=== PATIENT | male | born 1960 | race Caucasian/White ===

== ENCOUNTER → 2016-09-26 | Outpatient (CLI) | payer BC ==
[~2016-09-26] MED LIST: ASPI81TA28 PO; B-COTAB18 PO; CHOL2000 PO; COEN1CAP17 PO; FERR28TA PO; FEXO1TAB49 PO; GLUC1CAP35 PO; IRBE-37 PO; PRAV40TA2 PO; PRLSR20 PO; SERT50TA PO
== END | disposition home or self-care (01) ==
LOC: C.FOODA 09:15
PROVIDERS: ATTEND Internal Medicine Gastroenterology
DX: K90.0 Celiac disease (principal)

== ENCOUNTER 2021-10-23 05:10 | Observation (INO) ==
--- NOTE | 2021-09-28 08:30 | History & Physical Report ---
Date of Service September 28, 2021 date of surgery: 10/23/21 Procedure: Right Total Knee Arthroplasty Surgeon: Rasheed Martinez Assessment & Plan (1) Arthritis of right knee: Plan: Risks and benefits of procedure discussed in detail today, patient would like to proceed with a Right total knee replacement at [facility] as scheduled. will obtain medical clearance prior to surgery as well as obtain PATs at [facility]. Will place on ASA 81mg po bid x 1 month post op, f/u 2 weeks post op for routine post-operative care and x-ray, sooner if having any problems. will make arrangements for HHPT at the time of discharge, possible OPJ program. At this point in time, has failed conservative measures and would like to proceed with surgical intervention. The risks and benefits have been discussed including, but not limited to, risk of infection, nerve injury, stiffness, loss of motion, failure to improve, etc. Reasonable outcomes and options of treatment were discussed. An explanation of appropriate alternatives to the procedure that may be advantageous were discussed and their risks and benefits, as well as the risks and benefits of not proceeding with treatment. I offered to answer any additional inquiries concerning the treatment involved. All the patient's questions were answered. The patient is agreeable, understanding of the treatment plan and alternatives, and wishes to proceed with the treatment plan. History of Present Illness Chief Complaint: Right knee pain Primary Care Provider: Sue Espinal MD Benigno is a 61 year old male who complains of right knee pain, presents for pre- op evaluation prior to a right total knee replacement by Dr Martinez at [facility]. He complains of pain, decreased range of motion, and stiffness in his right knee. Currently the patient states that the symptoms are moderate-severe and rated as 6/10. The pain is described as aching, sharp and throbbing. He has undergone previous visco injection as well as cortisone without much relief. he has had prior right knee scope as well by Dr Mendoza, in April 2019 had partial medial and lateral meniscectomies. he also uses Celebrex for pain. Allergies Allergy/AdvReac Type Severity Reaction Status Date / Time cefuroxime Allergy Intermediate DIARRHEA Verified 05/28/21 14:19 gluten Allergy Unknown CELIAC Verified 05/28/21 14:19 DISEASE Home Medications Medication Instructions Recorded Confirmed Type aspirin 81 mg tablet,delayed 81 mg PO QAM 05/02/21 05/28/21 History release celecoxib 200 mg capsule 200 mg PO QAM 05/02/21 05/28/21 History cholecalciferol (vitamin D3) 50 50 mcg PO QAM 05/02/21 05/28/21 History mcg (2,000 unit) tablet (Vitamin D3) fexofenadine 180 mg tablet 180 mg PO QAM 05/02/21 05/28/21 History glucosamine 1 tab PO QAM 05/02/21 05/28/21 History HCl-methylsulfonylmethane 750 mg-750 mg tablet irbesartan 150 mg tablet 150 mg PO QAM 05/02/21 05/28/21 History cvvxtvqm-zcy-htgpd acid 0.4 1 tab PO QAM 05/02/21 05/28/21 History mg-lycopene 300 mcg-lutein 250 mcg tablet (Centrum Silver) omeprazole 20 mg capsule,delayed 20 mg PO QAM 05/02/21 05/28/21 History release oxycodone 5 mg tablet (Roxicodone) 5 mg PO Q6H PRN #12 tab 05/02/21 05/28/21 Rx sertraline 50 mg tablet 50 mg PO QAM 05/02/21 05/28/21 History metformin 500 mg tablet 500 mg PO QAM 05/28/21 05/28/21 History Past Med/Surg History Medical History Celiac disease Degenerative disc disease Depression Diabetes mellitus, type 2 pt reports diagnosis around 05/2021; followed by PCP GERD (gastroesophageal reflux disease) controlled, stable per pt Hyperlipidemia no meds at present can't tolerate statins Hypertension controlled, stable per pt 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, occasional vasovagal syncope in related settings Osteoarthritis Sleep apnea cpap-compliant Spinal stenosis Surgical History History of arthroscopy bilat knees History of colonoscopy History of esophagogastroduodenoscopy (EGD) History of spinal surgery L3-5 History of tooth extraction Hx of hernia repair as Hx of surgical procedure vocal cords > laser procedure for Leukoplakia Social History Smoking Status: Former smoker Second Hand Exposure: No; Hx Alcohol Use: Yes Alcohol type: wine Hx Substance Use: No Preferred Language: [place] Communication Ability: Effective [employer] Required: No Beliefs That Will Affect Care: None Current Living Situation: Significant Other Feels Safe at Home: Yes Assistive Devices: CPAP and Glasses Review of Systems Review of Systems: All systems reviewed & are unremarkable except as noted in HPI & below Constitutional: no fever, no chills and no sweats Respiratory: no cough and no dyspnea Cardiovascular: no chest pain, no dyspnea and no orthopnea Gastrointestinal: no abdominal pain, no nausea and no vomiting Musculoskeletal: as per Subjective / HPI Physical Exam Physical Exam: BP 134/90 Constitutional: WD/WN, vitals as above no acute distress Respiratory: normal respiratory effort, lungs clear to auscultation no respiratory distress, no labored breathing and does not use accessory muscles Cardiovascular: RRR, no murmur, no edema Gastrointestinal (Abdomen): normal bowel sounds, soft, nontender, no hepatosplenomegaly Musculoskeletal: Knee: + knee abnormal to inspection (RIGHT KNEE: ), + effusion (+1 effusion), + surgical incision (well healed portals), + limited ROM of knee (ROM 0/3/110), + knee ROM with crepitation, + joint line tenderness (medial joint line) and + Arben's sign positive; no deformity, no skin erythema, no ecchymosis, no valgus laxity, no varus laxity, anterior drawer test negative, Ernie's sign negative and pivot shift test negative Results & Data Results & Data ([facility]) Diagnostic Findings Right Knee X-ray: Right knee series showing degenerative changes to the right knee, narrowing of the medial compartment and patello-femoral joint with patellar spurring noted, findings showing joint space narrowing of the medial compartment and patello- femoral joint, osteophyte formation and subchondral sclerosis noted. overall varus alignment. no acute bony pathology noted.
--- NOTE | 2021-10-18 15:30 | Anesthesiology Consultation ---
Date of Service October 18, 2021 Assessment & Plan (1) Encounter for pre-operative examination: Chart Review Chart Review: Acceptable Risk for Surgery (pending anesthesia evaluation DOS ) and Patient NOT seen in Pre Admission Testing - Discussed with Dr. You- due to comorbidities- patient is NOT a Same Day Joint Candidate- surgeon's office was informed. - Due to moderate aortic stenosis- pt may need to have procedure done under [place]. Will leave to anesthesiologist discretion DOS - Check BSG AM DOS Per nursing assessment 10/18/2021, patient denies any recent travel. No known COVID infection in the past 90 days. Patient is fully vaccinated for COVID. No known Covid positive exposures or Covid related symptoms. Preop Covid testing scheduled 10/19/21= will await results Per PCP clearance letter 08/20/2021 = patient has been deemed to be medically stable at this time based on history, physical exam, laboratory, and imaging studies. His blood sugar is well controlled as well as his cyclic gastrointestinal disease. I am unaware of any contraindications to orthopedic surgery and believe him to be a good surgical candidate. If patient would require inpatient stay, please allow him to use his home CPAP machine and he should remain on a gluten-free, diabetic diet. Patient should not receive the antibiotic Ceftin as it causes diarrhea. Patient seen by PCP 06/12/2021 = patient seen for preop clearance. Surgery currently being postponed due to A1c being 9. Patient also found to have abnormal CXR. Also has history of heart murmur. Diabetes/hyperglycemiacontinue metformin. We will make change to GLP-1. Start Rybeisus- if tolerating increase to 6mg after two weeks. Follow up in one month. Pt with known history of mild to moderate aortic stenosis since 2014. ECHO 1 year ago documenting stability. No new clinical symptoms or findings so does not need ECHO at this time. Has been evaluated by athletics teacher in the past few yearsknown atherosclerosis plaque but not obstructive disease. Abnormal chest x-ray- needs CT scan. (Had subsequent CT scan done) Per PCP message 06/13/21= Pt stating that he has hx of murmur that radiates to neck. Has been told he has blockage to carotids in the past but unable to tolerate medication. Per PCP response "No prior history of carotid disease that I was ever aware of is his physician for the past 10 yearsreviewed all notes from cardiology [id number] and no mention of this. Has known heart murmur from aortic valve calcification that does radiate to neck as often seen with this condition. He has heavy calcification in the garcia of his coronary and iliac arteries but no obstruction of blood flow in the past testing. Okay to send them a copy of this message and of cardiology note April 2018 (Discussed with Dr. You- pt seen in PAT on 06/11/21 - no carotid bruits noted at that time- pt can proceed as scheduled) History Surgery Operation Date: 10/23/21 07:15 Proposed Procedures p Right Total Knee Arthroplasty - Rasheed Martinez DO Height/Weight Height: 6 ft Weight: 93.44 kg Allergies Allergy/AdvReac Type Severity Reaction Status Date / Time cefuroxime Allergy Intermediate DIARRHEA Verified 10/18/21 13:41 gluten Allergy Unknown CELIAC Verified 10/18/21 13:41 DISEASE Gbmnxzw-XIF-UuE Reductase AdvReac Muscle Pain Verified 10/18/21 13:41 Inhibitor Medications Home Medications Medication Instructions Recorded Confirmed Last Taken aspirin 81 mg tablet,delayed 81 mg PO QAM 05/02/21 10/18/21 05/02/21 release celecoxib 200 mg capsule 200 mg PO QAM 05/02/21 10/18/21 05/02/21 cholecalciferol (vitamin D3) 50 50 mcg PO QAM 05/02/21 10/18/21 05/02/21 mcg (2,000 unit) tablet (Vitamin D3) fexofenadine 180 mg tablet 180 mg PO QAM 05/02/21 10/18/21 05/02/21 glucosamine 1 tab PO QAM 05/02/21 10/18/21 05/02/21 HCl-methylsulfonylmethane 750 mg-750 mg tablet irbesartan 150 mg tablet 150 mg PO QAM 05/02/21 10/18/21 05/02/21 nydhzvvo-eyt-byvrj acid 0.4 1 tab PO QAM 05/02/21 10/18/21 05/02/21 mg-lycopene 300 mcg-lutein 250 mcg tablet (Centrum Silver) omeprazole 20 mg capsule,delayed 20 mg PO QAM 05/02/21 10/18/21 05/02/21 release sertraline 50 mg tablet 50 mg PO QAM 05/02/21 10/18/21 05/02/21 semaglutide 7 mg tablet (Rybelsus) 7 mg PO QAM 10/18/21 10/18/21 Unknown Past Medical History Medical History (Updated 10/18/21 @ 15:39 by Margarita Aparicio PA-C) Aortic stenosis At least moderate per 05/2020 ECHO Celiac disease Coronary artery calcification Noted on CT scan- PCP aware- last seen by cardio 2017 (also with severe calcification involving the distal aorta into the common iliac arteries) Degenerative disc disease Depression Diabetes mellitus, type 2 Hgb A1C improved from 9.0 in 06/2021 to 5.5 on 10/16/21 GERD (gastroesophageal reflux disease) controlled, stable per pt Hyperlipidemia no meds at present can't tolerate statins Hypertension controlled, stable per pt 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, occasional vasovagal syncope in related settings Osteoarthritis Sleep apnea cpap-compliant Spinal stenosis Past Surgical History Surgical History History of arthroscopy bilat knees History of colonoscopy History of esophagogastroduodenoscopy (EGD) History of spinal surgery L3-5 History of tooth extraction Hx of hernia repair as infant Hx of surgical procedure vocal cords > laser procedure for Leukoplakia Social History Smoking Status: Former smoker Do You Dip or Chew Tobacco: No Smoking End Date: 5 years ago Hx Alcohol Use: Yes Alcohol type: wine alcohol intake frequency: a few times a month Hx Substance Use: No substance use type: does not use Lab Results Anesthesia Preop Results Results Anesthesia Widget: WBC 5.16 K/uL (4.8-10.8) 10/16/21 Hgb 15.1 g/dL (14.0-18.0) 10/16/21 Hct 43.0 % (42-52) 10/16/21 Plt 213 K/uL (130-400) 10/16/21 Na 139 mmol/L (136-145) 10/16/21 K 4.3 mmol/L (3.5-5.1) 10/16/21 Cl 103 mmol/L (98-107) 10/16/21 CO2 28 mmol/L (21-32) 10/16/21 BUN 13 mg/dl (6-23) 10/16/21 Creat 0.62 mg/dl (0.6-1.4) 10/16/21 Glucose Level 99 mg/dl (70-99(Fasting)) 10/16/21 PT 11.8 Seconds (9.0-12.0) 10/16/21 PTT 27.3 Seconds (21.0-31.0) 10/16/21 INR 1.1 (0.9-1.1) 10/16/21 HA1c 5.5 % (4.5-5.6) 10/16/21 Urine Color Yellow 10/16/21 Urine Appearance Clear (Clear) 10/16/21 Urine pH 6.5 (4.5-7.5) 10/16/21 Urine Specific [place] 1.014 (1.000-1.030) 10/16/21 Urine Protein Trace (Negative) H 10/16/21 Urine Glucose (UA) Negative (Negative) 10/16/21 Urine Ketones Negative (Negative) 10/16/21 Urine Blood Negative (Negative) 10/16/21 Urine Nitrite Negative (Negative) 10/16/21 Urine Bilirubin Negative (Negative) 10/16/21 Urine Urobilinogen Negative (Negative) 10/16/21 Urine Leukocyte Esterase Negative (Negative) 10/16/21 Urine WBC (Auto) 1-5 /hpf (0-5) 10/16/21 Urine RBC (Auto) 0-4 /hpf (0-4) 10/16/21 Urine Hyaline Casts (Auto) 0 /lpf (0-5) 10/16/21 Urine Epithelial Cells (Auto) 0-5 /lpf (0-5) 10/16/21 Urine Bacteria (Auto) Negative (Negative) 10/16/21 Testing Electrocardiogram Date: 06/11/21 Normal sinus rhythm, rate 75 bpm. Chest X-Ray Date: 06/11/21 FINDINGS: Question of a 7 mm nodule within the left upper lobe. The right lung is clear. The heart is normal in size. No pleural effusions. No pneumothorax. IMPRESSION: 1. No acute process within the chest. 2. Questionable 7 mm nodule within left upper lobe. This is likely due to the ov erlapping ribs. However, follow-up dedicated chest CT is recommended for further evaluation. This finding was called/faxed to the referring physician following dictation. (Had subsequent chest CT 06/19/2021) Echocardiogram Date: 05/17/20 EF: 55% LV Function: normal Other Findings: + diastolic dysfunction (Grade I ) Left atrium moderately dilated. Trace mitral regurgitation directed centrally. Mitral valve is mildly thickened. Mild mitral annular calcification Aortic valve is poorly visualized and calcified. Valve area 1.75 cm; AV mean gradient 21 mmHg. Moderate aortic stenosis. ("There is at least moderate aortic stenosis based on gradient evaluation. Consider ONDINA based on clinical suspicion). Mild TR. Mild pulmonary hypertension. Ascending aorta is mildly dilated. (ECHO done within the past two years - can proceed with surgery- discussed with Dr. You) Stress Test Date: 04/03/16 Type: DSE Negative dobutamine stress EKG and echocardiogram for ischemia. MPHR 85% EF 65% Left ventricular cavity size and systolic function are normal with no regional wall motion abnormalities present Other Testing Chest CT 06/19/2021 = mild pulmonary emphysema without acute intrathoracic a bnormality. No pulmonary nodules identified. Question opacity of the left upper lung described on recent chest x-ray was likely secondary to summation density. Extensive coronary artery calcifications. Hepatomegaly with hepatic steatosis.
[2021-10-23] MEDS ORDERED: FAMOTIDINE 20 MG TAB PO SCH (06:00)
[2021-10-23] MEDS ORDERED: LR 15ML/HR IV SCH (06:00)
[2021-10-23] MEDS ORDERED: dexAMETHasone 4 MG TAB PO SCH (06:00)
[2021-10-23] MEDS ORDERED: ACETAMINOPHEN 500 MG TAB PO SCH (06:00)
[2021-10-23] MEDS ORDERED: TRANEXAMIC ACID 1,000 MG **IV Pre-op IV SCH (06:00)
[2021-10-23] MEDS ORDERED: GABAPENTIN 600 MG DOSE PO SCH (06:00)
[2021-10-23] MEDS ORDERED: METOCLOPRAMIDE HCL 10 MG TABLET PO SCH (06:00)
[2021-10-23] MEDS ORDERED: TRANEXAMIC ACID 1,000 MG **IV Intra-op IV SCH (06:00)
[2021-10-23] MEDS ORDERED: CeleBREX 200 MG CAP PO SCH (06:00)
[2021-10-23] MEDS ORDERED: ROPIVACAINE 0.5% HCL/PF 150 MG, BUPIVACAINE 0.75% MPF 20 ML, EPINEPHrine 30MG/30ML (OR ... INSTIL SCH (06:00)
[2021-10-23] MEDS ORDERED: ceFAZolin 2000MG 2,000 MG/15 ML SYR IV SCH (06:00)
[2021-10-23] MEDS ORDERED: ROPIVACAINE 0.5% 5 MG/ML 30 ML VIAL ONE (06:17)
[2021-10-23] MEDS ORDERED: BUPIVACAINE 0.5 % 5 MG/1 ML PF 10ML VIAL ONE (06:17)
[2021-10-23] MEDS ORDERED: MIDAZOLAM HCL 1 MG/ML 2ML VIAL ONE (06:40)
[2021-10-23] MEDS ORDERED: PROPOFOL IV EMULSION 10 MG/ML 20 ML VIAL IV ONE ×2 (06:40→08:32)
[2021-10-23] MEDS ORDERED: LIDOCAINE 2% 2 ML VIAL/AMP(20MG/ML) INFIL ONE (06:40)
[2021-10-23] MEDS ORDERED: fentaNYL citrate 100 MCG/2 ML VIAL ONE (06:40)
--- NOTE | 2021-10-23 07:12 | History & Physical Bridge Note ---
Date of Service October 23, 2021 History & Physical Bridge Note I have examined the patient, reviewed the History & Physical and in the interval since the performance of the History & Physical I have noted the following changes of clinical significance: no changes noted
[2021-10-23] MEDS ORDERED: ORTHO JOINT ANESTHETIC ONE (07:17)
[2021-10-23] MEDS ORDERED: EPINEPHrine INJ 1 MG/ML AMP ONE (07:18)
[2021-10-23] MEDS ORDERED: BUPIVACAINE 0.25% 30 ML VIAL ONE (07:18)
[2021-10-23] MEDS ORDERED: DEXAMETHASONE SOD INJ 4 MG/ML VIAL ONE (07:18)
[2021-10-23] MEDS ORDERED: ATROPINE SULFATE 0.1 MG/ML 10ML SYR IV PRN (08:27)
[2021-10-23] MEDS ORDERED: ePHEDrine sulfate 50 MG/ML AMP IV PRN (08:27)
[2021-10-23] MEDS ORDERED: fentaNYL citrate 100 MCG/2 ML VIAL IV PRN (08:27)
[2021-10-23] MEDS ORDERED: ONDANSETRON INJ 2 MG/ML 2 ML VIAL IV PRN ×2 (08:27→10:44)
[2021-10-23] MEDS ORDERED: ONDANSETRON INJ 2 MG/ML 2 ML VIAL ONE (08:32)
--- NOTE | 2021-10-23 08:50 | Operative Report ---
Post Operative Report Pre & Post Diagnosis Operation Date: 10/23/21 07:15 Pre-Op Diagnosis: Right Knee Osteoarthritis Post-Op Diagnosis: Right Knee Osteoarthritis I identified the patient and participated in the time-out.: Yes Procedure Operation Date: 10/23/21 07:15 Actual Procedures p Right Total Knee Arthroplasty(Right) utilizing [employer] persona patient matched size femur 10 regular tibia G poly-10 mm medial constrained patella 34 oval- Rasheed Martinez DO Surgeon Rasheed Martinez DO Crown Wheel Assembler CHRIS Cutler Estimated Blood Loss 5 Findings Consistent with Post-Op Diagnosis Patient presents with severe end-stage tricompartmental degenerative joint disease patient has subchondral sclerosis marginal osteophytes 5 degree flexion contracture varus alignment eburnated uzhs-sd-vkee with marginal osteophytes and a moderate to large effusion Specimens Bone and cartilage Drains Medium bore Hemovac Anesthesia Type MAC Spinal Regional Complications none Disposition Accompanied Patient To Recovery: No Disposition: Recovery Room Indications Patient presents with severe end-stage tricompartmental degenerative joint disease right knee failed attempted conservative management daily physical therapy anti-inflammatories relative rest activity modification corticosteroid injection viscosupplementation the above intraoperative findings were noted. Description of Procedure After proper prepping and draping of the Right lower extremity anterior midline incision was made over the region of the extensor extensor mechanism after meticulous hemostasis was obtained and maintained in subcutaneous tissues a medial parapatellar incision was made The patella was subluxed lateralward the medial lateral gutter were cleaned from any hypertrophic synovitis and scar tissue of the distal femoral block was placed and the distal femoral osteotomy cut was made subsequently the chamfers anterior and posterior osteotomy cuts were made utilizing the 4-in-1 block the tibia was subsequently subluxed anteriorward medial and ateral meniscal remnants were excised in their entirety remnants of the anterior and posterior cruciate ligaments were excised in their entirety excellent exposure of the proximal tibia was obtained the tibial osteotomy guide was placed on the proximal tibial osteotomy cut was made once again the knee was irrigated with copious amounts of sterile saline solution the patella was subsequently everted lateralward thickened scar tissue around the patella was removed the patella was subsequently cut utilizing a freehand technique and was drilled prepared for final preparation and placement of patella socially flexion-extension gaps were checked and the equal and symmetric trials were placed to the appropriate femoral and tibial trials with poly-spacer being placed for equal flexion and extension gaps and full range of motion including extension to 0 and flexion to 140 the trial components after having been taken to recovery range of motion was subsequently removed meticulous hemostasis was obtained and maintained subsequently a knee block injection of letty int cocktail including ropivacaine 0.5% 150 mg. Bupivacaine 0.5% epinephrine 1- 200,030 mL's toradol 30 mg dexamethasone 4 mg ketamine 10 mg clonidine 100 micrograms normal saline solution 30 mg was infiltrated into the soft tissues of the posterior knee medial lateral gutters and periosteal synovium special attention was paid to protect neurovascular structures at all times subsequently trial components having been removed the knee was irrigated with sterile saline solution. debris was removed the proximal tibia was subsequently prepared and was made ready for the placement of the tibial component tibial component was also cemented and tamped into position the femoral component was subsequently placed and cemented in the position the patellar component was subsequently cemented in position because hemostasis once again obtained and maintained wound having been thoroughly irrigated with debridement and debridement lavage was performed as well as a medial parapatellar incision closed with #1 Vicryl in interrupted fashion subcutaneous was closed with #2 Vicryl skin was closed with skin clips. PA-C was necessary for prepping and drapping as well as wound closure of deep fascia Sub cutaneous tissue and skin and was necessary for the case. A sterile compressive dressing was placed patient was taken to recovery in stable condition of report dictated by Juan I attest to the content of the Intraoperative Record and any orders documented therein. Any exceptions are noted below.Due to the complex nature of the procedure, the entire surgery was performed with the operational assistance of SAM Cutler. The assistant chief engineer, under direct supervision, was involved in the actual performance of all aspects of the surgical procedure including hemostasis, tissue retraction and incision, instrument management, patient positioning, and wound closure. I attest to the content of the Intraoperative Record and any orders documented therein. Any exceptions are noted below.
--- NOTE | 2021-10-23 09:49 | XRay Report ---
XR knee RT 1 or 2V routine CLINICAL HISTORY: Surgical Post Op TECHNIQUE: 2 views of the right knee were obtained. Comparison: None available at the time of this dictation. FINDINGS: Patient is status post total knee arthroplasty with expected postsurgical changes including soft tiss ue swelling, subcutaneous emphysema, and surgical staple placement. No periarticular lucency or hardw are fracture is seen. IMPRESSION: Expected postoperative appearance status post total knee arthroplasty. ACT 112: Negative or not required by law. Electronically signed by: Rico Norris M.D. 10/23/2021 9:48 AM
[2021-10-23] MEDS: SODIUM CHLORIDE 0.9% 1000ML 1,000 ML IV SCH ×2 (10:00→21:04)
[2021-10-23] MEDS ORDERED: MAGNESIUM HYDROXIDE SUSP 30 ML UDC PO PRN (10:44)
[2021-10-23] MEDS ORDERED: METOCLOPRAMIDE HCL INJ 5 MG/ML 2 ML VIAL IV PRN (10:44)
[2021-10-23] MEDS ORDERED: PHARMACY GLYCEMIC MGMT CONSULT PRN (10:44)
[2021-10-23] MEDS ORDERED: bisacodyL 10 MG SUPP PR PRN (10:44)
[2021-10-23] MEDS ORDERED: HYDROmorphone INJ 1 MG/ML SYRINGE IV PRN (10:44)
[2021-10-23] MEDS ORDERED: diphenhydrAMINE Capsule 25 MG CAP PO PRN (10:44)
[2021-10-23] MEDS ORDERED: NALOXONE HCL 0.4 MG/1 ML VIAL/CARP IV PRN (10:44)
--- NOTE | 2021-10-23 11:20 | Pharmacy Report ---
Pharmacy Glycemic Short Note 2 - Date of Service October 23, 2021 - Glycemic Short BSG Results (Last 24 hours): 10/23/21 10/23/21 05:33 09:23 POC Glucose 121 H 155 H OUTPATIENT ANTIDIABETIC REGIMEN: * Rybelsus 7 mg PO daily * HbA1c: 5.5% (10/16/21) ASSESSMENT: * SERJIO is a 61 year old male POD #0 s/p right total knee arthroplasty * Received 8 mg PO dexamethasone and intra-articular other mix containing dexamethasone * Preop BSG of 121 mg/dL, postop BSG of 155 mg/dL * Given excellent HbA1c on a single antidiabetic agent - will hold off on basal at this time * Will use aggressive Novolog parameters with one overnight check PLAN FOR INPATIENT GLYCEMIC CONTROL: * Hold outpatient oral diabetes medications * Basal insulin * hold * Bolus insulin * NovoLog per scale ACHS or Q6hrs while NPO * Goal Range: Low 110 mg/dL - High 140 mg/dL * Correction Factor: 20 mg/dL/unit * Nutritional / Prandial insulin per carb ratio of 1 unit per 6 grams CHO consumed
[2021-10-23] MEDS ORDERED: GLUCOSE 40% GEL 15 GM TUBE PO PRN (11:30)
[2021-10-23] MEDS ORDERED: CARBOHYDRATES FOR HYPOGLYCEMIA PO PRN (11:30)
[2021-10-23] MEDS ORDERED: GLUCAGON FOR INJ 1 MG VIAL IM PRN (11:30)
[2021-10-23] MEDS ORDERED: GLUCOSE 10 TABS/TUBE PO PRN (11:30)
[2021-10-23] MEDS ORDERED: DEXTROSE 50% 50 ML SYRINGE IV PRN (11:30)
[2021-10-23] MEDS: KETOROLAC TROMETHAMINE 15 MG/ML VIAL IV SCH ×3 (11:58→21:45)
[2021-10-23] MEDS: INSULIN ASPART PER UNIT SC SCH ×3 (13:02→20:07)
[2021-10-23] MEDS: ACETAMINOPHEN 500 MG TAB PO SCH ×2 (13:03→21:45)
--- NOTE | 2021-10-23 13:06 | Anesthesiology Progress Note ---
Date of Service October 23, 2021 Anesthesia Post Procedure Vital Signs Vital Signs: Temp Pulse Pulse Resp BP Pulse Ox 10/23/21 12:17 36.6 C 76 16 155/93 H 97 10/23/21 11:11 96 10/23/21 11:10 69 18 147/87 H 72 L 10/23/21 10:40 36.4 C L 69 16 133/83 95 10/23/21 10:00 36.4 C L 66 11 L 142/82 H 95 10/23/21 09:50 36.4 C L 73 13 135/84 96 10/23/21 09:40 72 14 132/80 99 10/23/21 09:30 73 14 127/78 98 10/23/21 09:20 36.4 C L 81 16 118/77 99 10/23/21 05:36 37.1 C 82 20 146/97 H 96 Pain Intensity Left Knee: Pain Intensity: 0 Transfer of Care Handoff Completed per policy Notes Mental Status: alert / awake / arousable Patient Amnestic to Procedure: Yes Nausea / Vomiting: adequately controlled Pain: adequately controlled Airway Patency, RR, SpO2: stable & adequate BP & HR: stable & adequate Hydration State: stable & adequate Neuraxial Anesthesia: was administered and sensory block is resolving Anesthetic Complications: no major complications apparent and Pt Satisfied with anesthetic care
[2021-10-23] MEDS: oxyCODONE HCL IR 5 MG TAB (IMMEDIATE RELEASE) PO PRN ×2 (17:00→23:33)
[2021-10-23] MEDS: ceFAZolin 2000MG 2,000 MG/15 ML SYR IV SCH ×2 (17:05→23:33)
[2021-10-23] MEDS: ASPIRIN 81 MG ECTAB PO SCH (20:00)
[2021-10-23] MEDS: DOCUSATE SODIUM 100 MG CAP PO SCH (20:01)
[2021-10-23] MEDS ORDERED: SENNA 8.6 MG TAB PO SCH (21:00)
[2021-10-24] MEDS ORDERED: INSULIN ASPART PER UNIT SC SCH (02:00)
[2021-10-24] MEDS: KETOROLAC TROMETHAMINE 15 MG/ML VIAL IV SCH (05:48)
[2021-10-24] MEDS: ACETAMINOPHEN 500 MG TAB PO SCH ×2 (05:48→13:13)
--- NOTE | 2021-10-24 06:47 | Orthopedic Progress Note ---
Date of Service October 24, 2021 Assessment & Plan (1) Status post total right knee replacement: Plan: POD #1 s/p Right TKA pt/ot dvt proph with LES/SCD/ASA plan for d/c home with home health PT, recheck after PT today Admission and Anticipated Discharge Date Admission Date: October 23, 2021 Subjective POD #1 s/p Right TKA Review of Systems Constitutional: no fever, no chills and no sweats Respiratory: no cough and no dyspnea Cardiovascular: no chest pain and no dyspnea Gastrointestinal: no abdominal pain, no nausea and no vomiting Physical Exam Physical Exam: Vital Signs Temp 36.7 C 10/24/21 03:00 Pulse 76 10/24/21 03:00 Resp 16 10/24/21 03:00 BP 149/83 H 10/24/21 03:00 Pulse Ox 95 10/24/21 03:00 Intake & Output 10/23/21 10/23/21 10/24/21 06:59 18:59 06:59 Intake Total 1000 / 2000 1000 / 2000 Output Total 266 / 1906 1640 / 1906 Balance 734 / 94 -640 / 94 Weight 99.9 kg 99.9 kg Intake: IV 200 / 1200 1000 / 1200 Lactated Ringe r's 1,000 ml @ 15 0 / 0 mls/hr IV .Q24 H DAX Rx#: [id number] Sodium Chlorid e 0.9% 1000ML 1, 1000 / 1000 000 ml @ 100 m ls/hr IV .Q10H DAX Rx#:[id number] Tranexamic Aci d / 0.7% NaCl 1, 200 / 200 000 mg In 100 ml @ 600 mls/hr IV TODAY@0600 DAX Rx#:[id number] IV Perioperative 800 / 800 Output: Urine 1250 / 1250 Estimated Blood Loss 5 / 5 Drain Output 261 / 651 390 / 651 Right Knee Hem ovac #1 261 / 651 390 / 651 Other: Weight Measureme nt Method Standing Scale Musculoskeletal: Right Leg: NVDI, calf SNT, negative kodi sign. DP palpable, able to wiggle toes/ankle movement without difficulty. dressing clean dry and intact. Results & Data ([facility]) Vital Signs (Past 12 Hours) Vital Signs Temp Pulse Resp BP BP Pulse Ox 10/24/21 03:00 36.7 C 76 16 149/83 H 95 10/23/21 23:27 36.8 C 84 16 137/79 97 10/23/21 19:03 36.7 C 92 H 21 131/91 94 Laboratory Results Laboratory Results POC Glucose 168 mg/dl (70-99) H 10/24/21 02:54 SARS-CoV-2, RNA, NAAT NEGATIVE (NEGATIVE) 10/23/21 05:34 Blood Type O Positive 10/23/21 05:30 Antibody Screen NEGATIVE 10/23/21 05:30 Impressions Knee X-Ray 10/23/21 09:26 XR knee RT 1 or 2V routine CLINICAL HISTORY: Surgical Post Op TECHNIQUE: 2 views of the right knee were obtained. Comparison: None available at the time of this dictation. FINDINGS: Patient is status post total knee arthroplasty with expected postsurgical changes including soft tissue swelling, subcutaneous emphysema, and surgical staple placement. No periarticular lucency or hardware fracture is seen. IMPRESSION: Expected postoperative appearance status post total knee arthroplasty. ACT 112: Negative or not required by law. Electronically signed by: Rico Norris M.D. 10/23/2021 9:48 AM
[2021-10-24 07:36] LABS: Hematocrit (blood only) 34.1 % (42-52); Hemoglobin 12.1 g/dL (14.0-18.0); Mean Corpuscular Hemoglobin 34.5 pg (25-34); Mean Corpuscular Hgb Conc 35.5 g/dL (32-36); Mean Corpuscular Volume 97.2 fL (80-100); Mean Platelet Volume 10.6 fL (7.4-10.4); Platelet Count 190 K/uL (130-400); RDW Coefficient of Variation 12.5 % (11.5-14.5); RDW Standard Deviation 44.2 fL (36.4-46.3); Red Blood Count 3.51 M/uL (4.7-6.1); White Blood Count 12.54 K/uL (4.8-10.8)
[2021-10-24 08:03] LABS: BUN Creatinine Ratio 25.9 (10-20); Calcium 8.9 mg/dl (8.5-10.1); Est GFR (African American) 128.4 ml/min; Est GFR (Non-African American) 110.8 ml/min; Potassium 3.7 mmol/L (3.5-5.1)
[2021-10-24] MEDS: ASPIRIN 81 MG ECTAB PO SCH (08:44)
[2021-10-24] MEDS: DOCUSATE SODIUM 100 MG CAP PO SCH (08:45)
[2021-10-24] MEDS: oxyCODONE HCL IR 5 MG TAB (IMMEDIATE RELEASE) PO PRN ×2 (08:53→13:10)
[2021-10-24] MEDS ORDERED: IRBESARTAN 150 MG TAB PO SCH (09:00)
[2021-10-24] MEDS ORDERED: CHOLECALCIFEROL 1,000 UNITS 25 MCG TAB PO SCH (09:00)
[2021-10-24] MEDS ORDERED: SERTRALINE HCL 50 MG TABLET PO SCH (09:00)
[2021-10-24] MEDS ORDERED: FEXOFENADINE HCL 180 MG TAB PO SCH (09:00)
[2021-10-24] MEDS ORDERED: CeleBREX 200 MG CAP PO SCH (09:00)
[2021-10-24] MEDS ORDERED: MULTIVITAMIN TAB PO SCH (09:00)
[2021-10-24] MEDS: INSULIN ASPART PER UNIT SC SCH ×2 (09:09→13:08)
--- NOTE | 2021-10-25 07:29 | Discharge Summary ---
Date of Service date of discharge: October 24, 2021 date of admission: 10/23/21 Admission HPI Per Admitting Provider Benigno is a 61 year old male who complains of right knee pain, presents for pre- op evaluation prior to a right total knee replacement by Dr Martinez at [facility]. He complains of pain, decreased range of motion, and stiffness in his right knee. Currently the patient states that the symptoms are moderate-severe and rated as 6/10. The pain is described as aching, sharp and throbbing. He has undergone previous visco injection as well as cortisone without much relief. he has had prior right knee scope as well by Dr Mendoza, in April 2019 had partial medial and lateral meniscectomies. he also uses Celebrex for pain. Principal Diagnosis right knee arthritis Discharge Exam Constitutional WD/WN, vitals as above no acute distress Respiratory normal respiratory effort, lungs clear to auscultation no respiratory distress, no labored breathing and does not use accessory muscles Cardiovascular RRR, no murmur, no edema Gastrointestinal (Abdomen) normal bowel sounds, soft, nontender, no hepatosplenomegaly Discharge Data Allergies Allergy/AdvReac Type Severity Reaction Status Date / Time cefuroxime Allergy Intermediate DIARRHEA Verified 10/23/21 05:32 gluten Allergy Unknown CELIAC Verified 10/23/21 05:32 DISEASE Vpnhzio-NBN-TrS Reductase AdvReac Muscle Pain Verified 10/23/21 05:32 Inhibitor Procedures Performed Operation Date: 10/23/21 07:15 Actual Procedures p Right Total Knee Arthroplasty(Right) - Rasheed Martinez DO Ordered Studies 10/23/21 05:00 US - OR guided needle placemen Routine Hospital Course (1) Status post total right knee replacement: POD #1 s/p Right TKA pt/ot dvt proph with LES/SCD/ASA plan for d/c home with home health PT, recheck after PT today Total Time Total Time Spent Total Time Spent (In Minutes): 20 Discharge Plan Discharge Items Patient Disposition: Home - Home Health Services Reason For Visit: Right Knee Osteoarthritis Discharge Diagnosis: RIGHT TOTAL KNEE REPLACEMENT Activity: Per Instructions section Lifting: Wait until after follow-up appointment Weightbearing Comment: WBAT WITH WALKER Non-emergency contact: Surgeon Call non-emergency contact if: you have any medication questions, your temperature is above 101, your wound has increased redness, your wound has increased drainage and your wound pain has increased Follow-up/Referrals: Sue Espinal MD [Primary Care Provider] - Diet: Regular Addtl Attending Provider Instructions: ACTIVITY RECOMMENDATIONS: SELF CARE INSTRUCTIONS AFTER TOTAL KNEE REPLACEMENT A. You may need to continue a physical therapy program after discharge from the hospital. There are several options available to you. Your doctor will assist you in selecting the best one for you. 1. An out-patient facility 2 to 3 times a week for therapy or home therapy. 2. Continue working on all exercises taught to you in the hospital. Your goals should be to increase bending of your knee to 90 degrees and beyond and to fully straighten your knee. B. You may progress at your own pace from walking with a walker or crutches to a cane; then to no assistive devices. C. Make walking a part of your daily routine. Be up as much as comfortable with rest periods throughout the day. Rest with leg elevation is very important. Use the ice wrap frequently for the first 3-4 weeks. D. There are no restrictions on activities. 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 E. Wear the long elastic stockings (LES hose) 20 hours a day for 2 weeks after surgery. They can be removed several times a day for laundering and for a bath. F. You may shower, no tub baths until cleared by your doctor. SPECIAL CARE INSTRUCTIONS: VERY IMPORTANT TO READ AND REVIEW A. There are a few signs you need to watch for after you are home. Call [facility] if you notice any of the followin. Increased severe knee pain. Some pain is expected especially when you exercise. 2. Increased swelling in your leg or knee; pain or swelling of the calf muscle in either lower leg. 3. Any fluid drainage from the incision. 4. Shortness of breath or chest pain. B. Please call [facility] at if you have any concerns or questions about your operation or recovery. The doctor or his nurse will return your call promptly. C. You must take antibiotics before dental work, bladder, bowel or other surgery. Your doctor will provide you with a permanent care to carry describing this precaution. IMPORTANT: * REMEMBER TO TAKE ASPIRIN, 81 MG, TWICE DAILY FOR 4 WEEKS UNLESS OTHERWISE DIRECTED. THIS IS YOUR BLOOD THINNER. * HIGH RISK PATIENTS MAY BE PRESCRIBED A STRONGER BLOOD THINNER. THIS WILL BE PROVIDED AT DISCHARGE. * CALL IF INCREASED PAIN, REDNESS, DRAINAGE OR FEVER GREATER THAT 101. * WEAR LES HOSE 20 HOURS PER DAY FOR 2 WEEKS. * LAURE Dressing- This is a large suction dressing covering your incision. This will help pull any excess drainage from the wound and allow your incision to heal properly. You may shower with this if you can keep the unit outside of the shower. If any bleeding or leakage is noted please call your doctor's office. This will remain on your incision for 7 days and then should be removed. This can be done yourself or by the home nursing staff if applicable. The entire unit is disposable once removed. Once removed, keep incision clean and dry. If redness or drainage is noted, please call your surgeon. ONCE LAURE IS REMOVED, FOLLOW THESE INSTRUCTIONS: DERMABOND Prineo- This is a mesh tape dressing that is covered with glue. It should remain in place until the incision is properly healed, usually 10-14 days. This dressing is designed to naturally slough off. You may trim the excess mesh tape as it peels off. Incision may be briefly wet in a shower. Dry immediately by blotting with a clean, dry towel. Do not bath or swim until instructed by your doctor. Do not scratch, rub, or pick at the dressing. Do not apply any topical ointments or lotions until dressing is completely removed and/or instructed by your doctor. There may be a small piece of suture material at one end of your incision. Do not pull or trim this. If it is bothersome or catching on clothing, you may cover it with a band-aid. IF INCISION IS LEAKING THROUGH DRESSING, CALL THE OFFICE . FOLLOW UP VISIT: If appointment is not already scheduled: Please call [facility] to make a follow-up appointment for 2 weeks after your surgery at . Pending Studies at Discharge: No Stand-Alone Forms: [employer], Smoking Cessation Medications and DC Order Prescriptions: New acetaminophen [Tylenol Extra Strength] 500 mg Tablet 1,000 mg PO Q8 21 Days Qty: 126 RF: 0 aspirin 81 mg Tablet,Delayed Release (Dr/Ec) 81 mg PO BID 30 Days Qty: 60 RF: 0 celecoxib [Celebrex] 200 mg Capsule 200 mg PO BID 30 Days Qty: 60 RF: 0 oxycodone 5 mg Tablet 5 - 10 mg PO Q6H PRN (Reason: pain) Qty: 30 RF: 0 docusate sodium 100 mg Capsule 100 mg PO BID 10 Days Qty: 20 RF: 0 cefadroxil 500 mg capsule 500 mg PO BID 14 Days Qty: 28 RF: 0 Continued fexofenadine 180 mg Tablet 180 mg PO QAM RF: 0 omeprazole 20 mg capsule,delayed release(DR/EC) 20 mg PO QAM RF: 0 irbesartan 150 mg tablet 150 mg PO QAM RF: 0 sertraline 50 mg tablet 50 mg PO QAM RF: 0 Centrum Silver 0.4-300-250 mg-mcg-mcg Tablet 1 tab PO QAM RF: 0 cholecalciferol (vitamin D3) [Vitamin D3] 50 mcg (2,000 unit) Tablet 50 mcg PO QAM RF: 0 Rybelsus 7 mg Tablet 7 mg PO QAM RF: 0 Discontinued celecoxib 200 mg capsule 200 mg PO QAM RF: 0 aspirin 81 mg Tablet,Delayed Release (Dr/Ec) 81 mg PO QAM RF: 0 glucosamine-methylsulfonylmeth 750-750 mg Tablet 1 tab PO QAM RF: 0 Discharge Orders: Discharge Order (Routine); Ordered 10/24/21 Ordered By: Charlie León Admission Data Admit Date/Time: 10/23/21 09:26 Attending Provider: Rasheed Martinez Admit Provider: Rasheed Martinez Primary Care Provider: Sue Espinal Other Providers: [facility],Home Health Other Interventions: Discharge Summary Assessment (RN) Last Done: 10/24/21 14:18
== END 2021-10-24 15:39 | disposition home health service (06) ==
LOC: 3W 05:10 → ASU 05:10

== ENCOUNTER 2021-12-12 10:57 | Observation (INO) ==
--- NOTE | 2021-11-15 12:12 | History & Physical Report ---
Date of Service November 15, 2021 date of surgery: 12/12/21 Procedure: Left Total Knee Arthroplasty Surgeon: Rasheed Martinez Assessment & Plan (1) Arthritis of knee, left: Plan: Risks and benefits of procedure discussed in detail today, patient would like to proceed with a left total knee replacement at [facility] as scheduled. Will place on ASA 81mg po bid x 1 month post op, f/u 2 weeks post op for routine post-operative care and x-ray, sooner if having any problems. will make arrangements for HHPT at the time of discharge. At this point in time, has failed conservative measures and would like to proceed with surgical intervention. The risks and benefits have been discussed including, but not limited to, risk of infection, nerve injury, stiffness, loss of motion, failure to improve, etc. Reasonable outcomes and options of treatment were discussed. An explanation of appropriate alternatives to the procedure that may be advantageous were discussed and their risks and benefits, as well as the risks and benefits of not proceeding with treatment. I offered to answer any additional inquiries concerning the treatment involved. All the patient's questions were answered. The patient is agreeable, understanding of the treatment plan and alternatives, and wishes to proceed with the treatment plan. History of Present Illness Chief Complaint: left knee pain Primary Care Provider: Sue Espinal MD Benigno is a 61 year old male who complains of left knee pain, presents for pre- op evaluation prior to a left total knee replacement by Dr Martinez at [facility]. he complains of pain decreased range of motion and stiffness in the left knee. Currently the patient states that the symptoms are moderate-severe and rated as 6/10. The pain is described as aching, sharp and throbbing. he has had prior left knee scope by Dr Mendoza about 5 years ago, with PMM and PLM. his symptoms are aggravated by ascending stairs, daily activities, first steps while awake walking. he has been treated with previous Durolane injections in the past without much relief. Allergies Allergy/AdvReac Type Severity Reaction Status Date / Time cefuroxime Allergy Intermediate DIARRHEA Verified 10/23/21 05:32 gluten Allergy Unknown CELIAC Verified 10/23/21 05:32 DISEASE Abcmxgh-CSH-HqN Reductase AdvReac Muscle Pain Verified 10/23/21 05:32 Inhibitor Home Medications Medication Instructions Recorded Confirmed Type cholecalciferol (vitamin D3) 50 50 mcg PO QAM 05/02/21 10/23/21 History mcg (2,000 unit) tablet (Vitamin D3) fexofenadine 180 mg tablet 180 mg PO QAM 05/02/21 10/23/21 History irbesartan 150 mg tablet 150 mg PO QAM 05/02/21 10/23/21 History bifegwbq-sfl-qdcil acid 0.4 1 tab PO QAM 05/02/21 10/23/21 History mg-lycopene 300 mcg-lutein 250 mcg tablet (Centrum Silver) omeprazole 20 mg capsule,delayed 20 mg PO QAM 05/02/21 10/23/21 History release sertraline 50 mg tablet 50 mg PO QAM 05/02/21 10/23/21 History semaglutide 7 mg tablet (Rybelsus) 7 mg PO QAM 10/18/21 10/23/21 History aspirin 81 mg tablet,delayed 81 mg PO BID 30 Days #60 tab 10/23/21 Rx release celecoxib 200 mg capsule (Celebrex) 200 mg PO BID 30 Days #60 cap 10/23/21 Rx oxycodone 5 mg tablet 5 - 10 mg PO Q6H PRN #30 tab 10/23/21 Rx Past Med/Surg History Medical History Aortic stenosis At least moderate per 05/2020 ECHO Celiac disease Coronary artery calcification Noted on CT scan- PCP aware- last seen by cardio 2017 (also with severe calcification involving the distal aorta into the common iliac arteries) Degenerative disc disease Depression Diabetes mellitus, type 2 Hgb A1C improved from 9.0 in 06/2021 to 5.5 on 10/16/21 GERD (gastroesophageal reflux disease) controlled, stable per pt Hyperlipidemia no meds at present can't tolerate statins Hypertension controlled, stable per pt 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, occasional vasovagal syncope in related settings Osteoarthritis Sleep apnea cpap-compliant Spinal stenosis Surgical History History of arthroscopy bilat knees Left knee arthroscopy with partial medial and lateral meniscectomy, removal loose bodies History of colonoscopy History of esophagogastroduodenoscopy (EGD) History of spinal surgery L3-5 History of tooth extraction Hx of hernia repair as infant Hx of surgical procedure vocal cords > 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 Right Total Knee Arthroplasty(Right) utilizing [employer] persona patient matched size femur 10 regular tibia G poly-10 mm medial constrained patella 34 oval Social History Smoking Status: Former smoker Second Hand Exposure: No; Hx Alcohol Use: Yes Alcohol type: wine Hx Substance Use: No Preferred Language: [place] Communication Ability: Effective 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 Beliefs That Will Affect Care: None marital status: Single Current Living Situation: Significant Other Feels Safe at Home: Yes Assistive Devices: Cane and Walker Review of Systems Review of Systems: All systems reviewed & are unremarkable except as noted in HPI & below Constitutional: no fever, no chills and no sweats Respiratory: no cough and no dyspnea Cardiovascular: no chest pain, no dyspnea and no orthopnea Gastrointestinal: no abdominal pain, no nausea and no vomiting Musculoskeletal: as per Subjective / HPI Physical Exam Physical Exam: HT: 74 in WT: 217lb BP: 134/90 Constitutional: WD/WN, vitals as above no acute distress Respiratory: normal respiratory effort, lungs clear to auscultation no respiratory distress, no labored breathing and does not use accessory muscles Cardiovascular: RRR, no murmur, no edema Gastrointestinal (Abdomen): normal bowel sounds, soft, nontender, no hepatosplenomegaly Musculoskeletal: Knee: + knee abnormal to inspection (left knee: ), + effusion (+1 effusion), + surgical incision (well healed portals), + limited ROM of knee (ROM 0/3/110), + knee ROM with crepitation, + joint line tenderness (medial joint line) and + Arben's sign positive; no deformity, no skin erythema, no ecchymosis, no valgus laxity, no varus laxity, anterior drawer test negative, Ernie's sign negative and pivot shift test negative Results & Data Results & Data ([facility]) Diagnostic Findings Left Knee X-ray: left knee series confirm advanced degenerative changes to the left knee, greatest medial compartments and patellofemoral joint, showing joint space narrowing, osteophyte formation and subchondral sclerosis. no acute bony pathology noted.
--- NOTE | 2021-11-30 11:28 | Anesthesiology Consultation ---
Date of Service November 30, 2021 Assessment & Plan (1) Encounter for pre-operative examination: Chart Review Chart Review: Acceptable Risk for Surgery (pending anesthesia evaluation DOS and preop Covid testing results ) and Patient NOT seen in Pre Admission Testing -Hx of moderate aortic stenosis- pt did have right TKA done 10/23/21 under [facility] without noted issues - Check BSG AM DOS Per nursing assessment 10/18/2021, patient denies any recent travel. No known COVID infection in the past 90 days. Patient is fully vaccinated for COVID. No known Covid positive exposures or Covid related symptoms. Preop Covid testing scheduled 10/19/21= will await results Pt seen by PCP 11/20/21= Pt seen for sinus drainage. Patient unsure if due to allergies or infection. Did have 2, negative COVID testno known exposures. Patient also scheduled for left TKR 12/11/2021. Does not appear to be allergiesdoes have purulent drainagewe will treat with Augmentin. Patient has done well since right TKA. Continue with pain medication as prescribed and continue with PT. Handwritten addendum = low risk orthopedic surgery. No contraindications. Okay for second knee placement. (Per patient via telephone one 12/03/21- symptoms have fully resolved. Pt feels well) Right TKA 10/23/21= Done under [facility] at L3-4 with one attempt. No anesthesia issues noted per anesthesia record Per PCP message 06/13/21= Pt stating that he has hx of murmur that radiates to neck. Has been told he has blockage to carotids in the past but unable to tolerate medication. Per PCP response "No prior history of carotid disease that I was ever aware of is his physician for the past 10 yearsreviewed all notes from cardiology [phone] and no mention of this. Has known heart murmur from aortic valve calcification that does radiate to neck as often seen with this condition. He has heavy calcification in the garcia of his coronary and iliac arteries but no obstruction of blood flow in the past testing. Okay to send them a copy of this message and of cardiology note April 2018 (Discussed with Dr. You prior to right TKA on 10/23/21 - pt seen in PAT on 06/11/21 - no carotid bruits noted at that time- pt can proceed as scheduled- pt had no issues with right TKA History Surgery Operation Date: 12/12/21 09:00 Proposed Procedures p Left Total Knee Arthroplasty - Rasheed Martinez DO Height/Weight Height: 6 ft 2 in Weight: 97.069 kg Allergies Allergy/AdvReac Type Severity Reaction Status Date / Time cefuroxime Allergy Intermediate DIARRHEA Verified 11/30/21 09:16 gluten Allergy Unknown CELIAC Verified 11/30/21 09:16 DISEASE [id number] Reductase AdvReac Mild Muscle Pain Verified 11/30/21 09:16 Inhibitor Medications Home Medications Medication Instructions Recorded Confirmed Last Taken cholecalciferol (vitamin D3) 50 50 mcg PO QAM 05/02/21 11/30/21 10/22/21 08:00 mcg (2,000 unit) tablet (Vitamin D3) fexofenadine 180 mg tablet 180 mg PO QAM 05/02/21 11/30/21 10/22/21 08:00 irbesartan 150 mg tablet 150 mg PO QAM 05/02/21 11/30/21 10/22/21 08:00 [id number]-uta-[id number] acid 0.4 1 tab PO QAM 05/02/21 11/30/21 05/02/21 mg-lycopene 300 mcg-lutein 250 mcg tablet (Centrum Silver) omeprazole 20 mg capsule,delayed 20 mg PO QAM 05/02/21 11/30/21 10/23/21 04:00 release sertraline 50 mg tablet 50 mg PO QAM 05/02/21 11/30/21 10/23/21 04:00 semaglutide 7 mg tablet (Rybelsus) 7 mg PO QAM 10/18/21 11/30/21 10/22/21 08:00 oxycodone 5 mg tablet 5 - 10 mg PO Q6H PRN #30 tab 10/23/21 11/30/21 Unknown acetaminophen 500 mg tablet 1,000 mg PO TID 11/30/21 11/30/21 Unknown aspirin 81 mg tablet,delayed 81 mg PO BID 11/30/21 11/30/21 Unknown release celecoxib 200 mg capsule (Celebrex) 200 mg PO BID 11/30/21 11/30/21 Unknown Past Medical History Medical History (Updated 11/30/21 @ 11:18 by Margarita Aparicio PA-C) Aortic stenosis At least moderate per 05/2020 ECHO (Mild to moderate aortic stenosis since at least 2014 per PCP records- ECHO from 2019 showing stability) Celiac disease Coronary artery calcification - Noted on CT scan- PCP aware- last seen by cardio 2018 (also with severe calcification involving the distal aorta into the common iliac arteries) - Per 06/12/21 PCP note- evaluated by cardio in the past- known atherosclerosis plaque but not obstructive disease. 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, occasional vasovagal syncope in related settings Sleep apnea Cpap-compliant Spinal stenosis Past Surgical History Surgical History History of arthroscopy bilat knees Left knee arthroscopy with partial medial and lateral meniscectomy, removal loose bodies History of colonoscopy History of esophagogastroduodenoscopy (EGD) History of spinal surgery L3-5 History of tooth extraction Hx of hernia repair as Hx of surgical procedure vocal cords > 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 Right Total Knee Arthroplasty(Right) utilizing [employer] persona patient matched size femur 10 regular tibia G poly-10 mm medial constrained patella 34 oval Social History Smoking Status: Former smoker Do You Dip or Chew Tobacco: No Smoking End Date: 5 yrs ago Hx Alcohol Use: Yes Alcohol type: beer alcohol intake frequency: a few times a week Hx Substance Use: No substance use type: does not use Lab Results Anesthesia Preop Results Results Anesthesia Widget: WBC 12.54 K/uL (4.8-10.8) H 10/24/21 Hgb 12.1 g/dL (14.0-18.0) L 10/24/21 Hct 34.1 % (42-52) L 10/24/21 Plt 190 K/uL (130-400) 10/24/21 Na 138 mmol/L (136-145) 10/24/21 K 3.7 mmol/L (3.5-5.1) 10/24/21 Cl 104 mmol/L (98-107) 10/24/21 CO2 26 mmol/L (21-32) 10/24/21 BUN 15 mg/dl (6-23) 10/24/21 Creat 0.58 mg/dl (0.6-1.4) L 10/24/21 Glucose Level 128 mg/dl (70-99(Fasting)) H 10/24/21 PT 11.8 Seconds (9.0-12.0) 10/16/21 PTT 27.3 Seconds (21.0-31.0) 10/16/21 INR 1.1 (0.9-1.1) 10/16/21 HA1c 5.5 % (4.5-5.6) 10/16/21 Urine Color Yellow 10/16/21 Urine Appearance Clear (Clear) 10/16/21 Urine pH 6.5 (4.5-7.5) 10/16/21 Urine Specific [place] 1.014 (1.000-1.030) 10/16/21 Urine Protein Trace (Negative) H 10/16/21 Urine Glucose (UA) Negative (Negative) 10/16/21 Urine Ketones Negative (Negative) 10/16/21 Urine Blood Negative (Negative) 10/16/21 Urine Nitrite Negative (Negative) 10/16/21 Urine Bilirubin Negative (Negative) 10/16/21 Urine Urobilinogen Negative (Negative) 10/16/21 Urine Leukocyte Esterase Negative (Negative) 10/16/21 Urine WBC (Auto) 1-5 /hpf (0-5) 10/16/21 Urine RBC (Auto) 0-4 /hpf (0-4) 10/16/21 Urine Hyaline Casts (Auto) 0 /lpf (0-5) 10/16/21 Urine Epithelial Cells (Auto) 0-5 /lpf (0-5) 10/16/21 Urine Bacteria (Auto) Negative (Negative) 10/16/21 Blood Type O Positive 10/23/21 Antibody Screen NEGATIVE 10/23/21 Testing Electrocardiogram Date: 06/11/21 Normal sinus rhythm, rate 75 bpm. Chest X-Ray Date: 06/11/21 FINDINGS: Question of a 7 mm nodule within the left upper lobe. The right lung is clear. The heart is normal in size. No pleural effusions. No pneumothorax. IMPRESSION: 1. No acute process within the chest. 2. Questionable 7 mm nodule within left upper lobe. This is likely due to the overlapping ribs. However, follow-up dedicated chest CT is recommended for further evaluation. This finding was called/faxed to the referring physician following dictation. (Had subsequent chest CT 06/19/2021) Echocardiogram Date: 05/17/20 EF: 55% LV Function: normal Other Findings: + diastolic dysfunction (Grade I ) Left atrium moderately dilated. Trace mitral regurgitation directed centrally. Mitral valve is mildly thickened. Mild mitral annular calcification Aortic valve is poorly visualized and calcified. Valve area 1.75 cm; AV mean g radient 21 mmHg. Moderate aortic stenosis. ("There is at least moderate aortic stenosis based on gradient evaluation. Consider ONDINA based on clinical suspicion). Mild TR. Mild pulmonary hypertension. Ascending aorta is mildly dilated. (ECHO done within the past two years - can proceed with surgery- discussed with Dr. You prior to right TKA on 10/23/21) Stress Test Date: 04/03/16 Type: DSE Negative dobutamine stress EKG and echocardiogram for ischemia. MPHR 85% EF 65% Left ventricular cavity size and systolic function are normal with no regional wall motion abnormalities present Other Testing Chest CT 06/19/2021 = mild pulmonary emphysema without acute intrathoracic abnormality. No pulmonary nodules identified. Question opacity of the left upper lung described on recent chest x-ray was likely secondary to summation density. Extensive coronary artery calcifications. Hepatomegaly with hepatic steatosis.
--- NOTE | 2021-11-30 14:29 | Communication Note ---
Date of Service: November 30, 2021 Pt returned Margarita's phone call, she had advised this was to inquire if he had recovered from recent sinusitis, currently out of office. Patient states sym ptoms fully resolved and he feels well. He states was advised by surgeon's office to stop ASA 10 days prior to surgery. He was advised that he is to also discuss this with prescriber for their approval as well. He verbalized understanding and agreement, denied questions or concerns.
[~2021-12-12 10:57] MED LIST changes: +ACETAMINOPHEN 500 MG TAB PO SCH; -ASPI81TA28 PO; -B-COTAB18 PO; +BUPIVACAINE 0.5 % 5 MG/1 ML PF 10ML VIAL ONE; -CHOL2000 PO; -COEN1CAP17 PO; +CeleBREX 200 MG CAP PO SCH; +EPINEPHrine INJ 1 MG/ML AMP ONE; +FAMOTIDINE 20 MG TAB PO SCH; -FERR28TA PO; -FEXO1TAB49 PO; +GABAPENTIN 600 MG DOSE PO SCH; -GLUC1CAP35 PO; -IRBE-37 PO; +LR 15ML/HR IV SCH; +METOCLOPRAMIDE HCL 10 MG TABLET PO SCH; -PRAV40TA2 PO; -PRLSR20 PO; +ROPIVACAINE 0.5% 5 MG/ML 30 ML VIAL ONE; +ROPIVACAINE 0.5% HCL/PF 150 MG, BUPIVACAINE 0.75% MPF 20 ML, EPINEPHrine 30MG/30ML (OR ... INSTIL SCH; -SERT50TA PO; +TRANEXAMIC ACID 1,000 MG **IV Intra-op IV SCH; +TRANEXAMIC ACID 1,000 MG **IV Pre-op IV SCH; +ceFAZolin 2000MG 2,000 MG/15 ML SYR IV SCH; +dexAMETHasone 4 MG TAB PO SCH
[2021-12-12] MEDS ORDERED: PROPOFOL IV EMULSION 10 MG/ML 20 ML VIAL IV ONE ×2 (11:47→11:48)
[2021-12-12] MEDS ORDERED: LIDOCAINE 2% 2 ML VIAL/AMP(20MG/ML) INFIL ONE (11:47)
[2021-12-12] MEDS ORDERED: ONDANSETRON INJ 2 MG/ML 2 ML VIAL ONE (11:47)
[2021-12-12] MEDS ORDERED: MIDAZOLAM HCL 1 MG/ML 2ML VIAL ONE (11:48)
[2021-12-12] MEDS ORDERED: fentaNYL citrate 100 MCG/2 ML VIAL ONE (11:48)
--- NOTE | 2021-12-12 12:09 | History & Physical Bridge Note ---
Date of Service December 12, 2021 History & Physical Bridge Note I have examined the patient, reviewed the History & Physical and in the interval since the performance of the History & Physical I have noted the following changes of clinical significance: no changes noted
--- NOTE | 2021-12-12 14:52 | Operative Report ---
Post Operative Report Pre & Post Diagnosis Operation Date: 12/12/21 13:50 Pre-Op Diagnosis: Unilateral Primary Osteoarthritis Left Post-Op Diagnosis: Unilateral Primary Osteoarthritis Left I identified the patient and participated in the time-out.: Yes Procedure Operation Date: 12/12/21 13:50 Actual Procedures p Left Total Knee Arthroplasty, Cemented(Left) utilizing [employer] persona size femur left 10 standard polysize ABDOMEN: Soft, non-tender, no organs or masses felt. Bowel sounds normo-active. No bruits. MC tibia size G patella size 31 x 8 oval Rasheed Martinez DO Surgeon Rasheed Martinez DO Manager Hydraulic CHRIS Cutler Estimated Blood Loss 5 Findings Consistent with Post-Op Diagnosis Patient presents with severe end-stage tricompartmental degenerative joint disease varus alignment subchondral sclerosis marginal osteophytes eburnated [id number] with a moderate to large effusion Specimens Bone and cartilage Drains Medium bore Hemovac Anesthesia Type MAC Spinal Regional Complications none Disposition Accompanied Patient To Recovery: No Disposition: Recovery Room Indications Patient presents with severe end-stage DJD varus alignment subchondral sclerosis marginal osteophytes patient failed attempted corticosteroid injection viscosupplementation relative rest activity modification patient presents for a left total knee arthroplasty Description of Procedure After proper prepping and draping of the left lower extremity anterior midline incision was made over the region of the extensor extensor mechanism after meticulous hemostasis was obtained and maintained in subcutaneous tissues a medial parapatellar incision was made The patella was subluxed lateralward the medial lateral gutter were cleaned from any hypertrophic synovitis and scar tissue of the distal femoral block was placed and the distal femoral osteotomy cut was made subsequently the chamfers anterior and posterior osteotomy cuts were made utilizing the 4-in-1 block the tibia was subsequently subluxed anteriorward medial and ateral meniscal remnants were excised in their entirety remnants of the anterior and posterior cruciate ligaments were excised in their entirety excellent exposure of the proximal tibia was obtained the tibial osteotomy guide was placed on the proximal tibial osteotomy cut was made once again the knee was irrigated with copious amounts of sterile saline solution the patella was subsequently everted lateralward thickened scar tissue around the patella was removed the patella was subsequently cut utilizing a freehand technique and was drilled prepared for final preparation and placement of patella socially flexion-extension gaps were checked and the equal and symmetric trials were placed to the appropriate femoral and tibial trials with poly-spacer being placed for equal flexion and extension gaps and full range of motion including extension to 0 and flexion to 140 the trial components after having been taken to recovery range of motion was subsequently removed meticulous hemostasis was obtained and maintained subsequently a knee block injection of joint cocktail including ropivacaine 0.5% 150 mg. Bupivacaine 0.5% epinephrine 1-200,030 mL's toradol 30 mg dexamethasone 4 mg ketamine 10 mg clonidine 100 micrograms normal saline solution 30 mg was infiltrated into the soft tissues of the posterior knee medial lateral gutters and periosteal synovium special attention was paid to protect neurovascular structures at all times subsequently trial components having been removed the knee was irrigated with sterile saline solution. debris was removed the proximal tibia was subsequently prepared and was made ready for the placement of the tibial component tibial component was also cemented and tamped into position the femoral component was subsequently placed and cemented in the position the patellar component was subsequently cemented in position because hemostasis once again obtained and maintained wound having been thoroughly irrigated with debridement and debridement lavage was performed as well as a medial parapatellar incision closed with #1 Vicryl in interrupted fashion subcutaneous was closed with #2 Vicryl skin was closed with skin clips. PA-C was necessary for prepping and drapping as well as wound closure of deep fascia Sub cutaneous tissue and skin and was necessary for the case. A sterile compressive dressing was placed patient was taken to recovery in stable condition of report dictated by Juan I attest to the content of the Intraoperative Record and any orders documented therein. Any exceptions are noted below.Due to the complex nature of the procedure, the entire surgery was performed with the operational assistance of CHRIS Cutler. The operations administrative assistant, under direct supervision, was involved in the actual performance of all aspects of the surgical procedure including hemostasis, tissue retraction and incision, instrument management, patient positioning, and wound closure. I attest to the content of the Intraoperative Record and any orders documented therein. Any exceptions are noted below.
--- NOTE | 2021-12-12 15:49 | XRay Report ---
XR knee LT 1 or 2V routine CLINICAL HISTORY: Surgical Post Op COMPARISON: None FINDINGS: Alignment of the total left knee arthroplasty is anatomic. There is no periprosthetic frac ture or unexpected radiopaque foreign body. Drains are in place. IMPRESSION: Expected findings following total left knee arthroplasty. ACT 112: Negative or not required by law. Electronically signed by: Phil Bang M.D. 12/12/2021 3:48 PM
--- NOTE | 2021-12-12 15:58 | Anesthesiology Progress Note ---
Date of Service December 12, 2021 Anesthesia Post Procedure Vital Signs Vital Signs: Temp Pulse Resp BP Pulse Ox 12/12/21 15:45 77 14 141/89 H 94 12/12/21 15:35 75 14 137/80 94 12/12/21 15:25 36.3 C L 83 17 130/82 98 12/12/21 11:31 37.3 C 80 20 169/92 H 99 Pain Intensity Left Knee: Pain Intensity: 1 Transfer of Care Handoff Completed per policy Notes Mental Status: alert / awake / arousable Patient Amnestic to Procedure: Yes Nausea / Vomiting: adequately controlled Pain: adequately controlled Airway Patency, RR, SpO2: stable & adequate BP & HR: stable & adequate Hydration State: stable & adequate Neuraxial Anesthesia: was administered and sensory block is resolving Anesthetic Complications: no major complications apparent
[2021-12-12] MEDS ORDERED: bisacodyL 10 MG SUPP PR PRN (16:32)
[2021-12-12] MEDS ORDERED: HYDROmorphone INJ 1 MG/ML SYRINGE IV PRN (16:32)
[2021-12-12] MEDS ORDERED: PHARMACY GLYCEMIC MGMT CONSULT PRN (16:32)
[2021-12-12] MEDS ORDERED: MAGNESIUM HYDROXIDE SUSP 30 ML UDC PO PRN (16:32)
[2021-12-12] MEDS ORDERED: METOCLOPRAMIDE HCL INJ 5 MG/ML 2 ML VIAL IV PRN (16:32)
[2021-12-12] MEDS ORDERED: NALOXONE HCL 0.4 MG/1 ML VIAL/CARP IV PRN (16:32)
[2021-12-12] MEDS ORDERED: ONDANSETRON INJ 2 MG/ML 2 ML VIAL IV PRN (16:32)
[2021-12-12] MEDS ORDERED: diphenhydrAMINE Capsule 25 MG CAP PO PRN (16:32)
[2021-12-12] MEDS ORDERED: SODIUM CHLORIDE 0.9% 1000ML 1,000 ML IV SCH (18:15)
[2021-12-12] MEDS ORDERED: CARBOHYDRATES FOR HYPOGLYCEMIA PO PRN (18:30)
[2021-12-12] MEDS ORDERED: GLUCOSE 10 TAB/TUBE PO PRN (18:30)
[2021-12-12] MEDS ORDERED: GLUCOSE 40% GEL 15 GM TUBE PO PRN (18:30)
[2021-12-12] MEDS ORDERED: DEXTROSE 50% 50 ML SYRINGE IV PRN (18:30)
[2021-12-12] MEDS ORDERED: GLUCAGON FOR INJ 1 MG VIAL IM PRN (18:30)
[2021-12-12] MEDS: INSULIN ASPART PER UNIT SC SCH ×2 (18:32→21:34)
[2021-12-12] MEDS: KETOROLAC TROMETHAMINE 15 MG/ML VIAL IV SCH (18:33)
[2021-12-12] MEDS: SENNA 8.6 MG TAB PO SCH (19:51)
[2021-12-12] MEDS: DOCUSATE SODIUM 100 MG CAP PO SCH (19:51)
[2021-12-12] MEDS: ASPIRIN 81 MG ECTAB PO SCH (19:51)
[2021-12-12] MEDS: ceFAZolin 2000MG 2,000 MG/15 ML SYR IV SCH (19:52)
[2021-12-12] MEDS: oxyCODONE HCL IR 5 MG TAB (IMMEDIATE RELEASE) PO PRN (21:35)
[2021-12-12] MEDS: ACETAMINOPHEN 500 MG TAB PO SCH (21:36)
[2021-12-13] MEDS ORDERED: INSULIN ASPART PER UNIT SC SCH
[2021-12-13] MEDS: KETOROLAC TROMETHAMINE 15 MG/ML VIAL IV SCH ×3 (01:49→12:56)
[2021-12-13] MEDS: oxyCODONE HCL IR 5 MG TAB (IMMEDIATE RELEASE) PO PRN ×5 (04:13→20:29)
[2021-12-13] MEDS: ceFAZolin 2000MG 2,000 MG/15 ML SYR IV SCH (06:00)
[2021-12-13] MEDS: ACETAMINOPHEN 500 MG TAB PO SCH ×3 (06:03→21:53)
[2021-12-13 07:10] LABS: Hematocrit (blood only) 34.5 % (40.1-51.0); Mean Corpuscular Hgb Conc 34.8 g/dL (32.0-36.0); Mean Corpuscular Volume 94.8 fL (80.0-100.0); Mean Platelet Volume 9.9 fL (9.4-12.4); Platelet Count 215 K/uL (130-400); RDW Coefficient of Variation 11.9 % (11.5-14.5); RDW Standard Deviation 41.7 fL (36.4-46.3); Red Blood Count 3.64 M/uL (4.63-6.08); White Blood Count 11.42 K/ul (4.8-10.8)
[2021-12-13 07:29] LABS: BUN Creatinine Ratio 29.2 (10-20); Calcium 8.6 mg/dl (8.5-10.1); Creatinine Clr Calc Pharmacy 140.5 ml/min; Est GFR (African American) 122.6 ml/min; Est GFR (Non-African American) 105.7 ml/min; Potassium 3.8 mmol/L (3.5-5.1)
[2021-12-13] MEDS: DOCUSATE SODIUM 100 MG CAP PO SCH ×2 (08:14→20:35)
[2021-12-13] MEDS: ASPIRIN 81 MG ECTAB PO SCH ×2 (08:14→20:35)
[2021-12-13] MEDS: IRBESARTAN 150 MG TAB PO SCH (08:14)
[2021-12-13] MEDS: CHOLECALCIFEROL 1,000 UNITS 25 MCG TAB PO SCH (08:14)
[2021-12-13] MEDS: SERTRALINE HCL 50 MG TABLET PO SCH (08:14)
[2021-12-13] MEDS: MULTIVITAMIN TAB PO SCH (08:14)
[2021-12-13] MEDS: FEXOFENADINE HCL 180 MG TAB PO SCH (08:14)
[2021-12-13] MEDS: INSULIN ASPART PER UNIT SC SCH ×4 (09:05→21:02)
--- NOTE | 2021-12-13 10:52 | Orthopedic Progress Note ---
Date of Service December 13, 2021 Assessment & Plan (1) Arthritis of knee, left: Plan: POD 1 s/p left TKA PT/OT protocols. WBAT. Pt progressing well. DVT prophylaxis - ASA po bid, SCD's, LES's. Pain management as written. DC planning - Planning for HH services upon dc. Admission and Anticipated Discharge Date Admission Date: December 12, 2021 Subjective POD 1 Pt ambulating in his room with walker. Having some mild pain this AM in the left knee. Mild pain in the thigh likely from tourniquette. No other complaints at this time. Pt is hoping to go home today. Physical Exam Physical Exam: Dressings are C/D/I. Calves are soft, NT. NV intact. Toes mo bile. Pt has good DF/PF of the left foot. Hemovac drainage was 175ml from the previous shift. Results & Data ([facility]) Vital Signs (Past 12 Hours) Vital Signs Temp Pulse Resp BP BP Pulse Ox 12/13/21 07:15 36.5 C 76 18 155/82 H 95 12/13/21 04:04 36.6 C 74 18 138/85 93 Laboratory Results Laboratory Results WBC 11.42 K/ul (4.8-10.8) H 12/13/21 06:51 RBC 3.64 M/uL (4.63-6.08) L 12/13/21 06:51 Hgb 12.0 g/dl (14.0-18.0) L 12/13/21 06:51 Hct 34.5 % (40.1-51.0) L 12/13/21 06:51 MCV 94.8 fL (80.0-100.0) 12/13/21 06:51 MCH 33.0 pg (25.0-34.0) 12/13/21 06:51 MCHC 34.8 g/dL (32.0-36.0) 12/13/21 06:51 RDW Std Deviation 41.7 fL (36.4-46.3) 12/13/21 06:51 RDW Coeff of Alexis 11.9 % (11.5-14.5) 12/13/21 06:51 Plt Count 215 K/uL (130-400) 12/13/21 06:51 MPV 9.9 fL (9.4-12.4) 12/13/21 06:51 Sodium 136 mmol/L (136-145) 12/13/21 06:51 Potassium 3.8 mmol/L (3.5-5.1) 12/13/21 06:51 Chloride 104 mmol/L (98-107) 12/13/21 06:51 Carbon Dioxide 25 mmol/L (21-32) 12/13/21 06:51 Anion Gap 7 (3-11) 12/13/21 06:51 BUN 19 mg/dl (6-23) 12/13/21 06:51 Creatinine 0.65 mg/dl (0.6-1.4) 12/13/21 06:51 Est Cr Clr Drug Dosing 140.5 ml/min 12/13/21 06:51 Est GFR ( Amer) 122.6 ml/min 12/13/21 06:51 Est GFR (Non-Af Amer) 105.7 ml/min 12/13/21 06:51 BUN/Creatinine Ratio 29.2 (10-20) H 12/13/21 06:51 Glucose 137 mg/dl (70-99(Fasting)) H 12/13/21 06:51 POC Glucose 133 mg/dl (70-99) H 12/13/21 08:14 Calcium 8.6 mg/dl (8.5-10.1) 12/13/21 06:51 SARS-CoV-2, RNA, NAAT NEGATIVE (NEGATIVE) 12/12/21 11:15 Blood Type O Positive 12/12/21 12:22 Antibody Screen NEGATIVE 12/12/21 12:22 Impressions Knee X-Ray 12/12/21 15:27 XR knee LT 1 or 2V routine CLINICAL HISTORY: Surgical Post Op COMPARISON: None FINDINGS: Alignment of the total left knee arthroplasty is anatomic. There is no periprosthetic fracture or unexpected radiopaque foreign body. Drains are in place. IMPRESSION: Expected findings following total left knee arthroplasty. ACT 112: Negative or not required by law. Electronically signed by: Phil Bang M.D. 12/12/2021 3:48 PM
--- NOTE | 2021-12-13 12:20 | Discharge Summary ---
Date of Service date of discharge: December 13, 2021 date of admission: 12-12-21 Admission HPI Per Admitting Provider Benigno is a 61 year old male who complains of left knee pain, presents for pre-op evaluation prior to a left total knee replacement by Dr Martinez at [facility]. he complains of pain decreased range of motion and stiffness in the left knee. Currently the patient states that the symptoms are moderate-severe and rated as 6/10. The pain is described as aching, sharp and throbbing. he has had prior left knee scope by Dr Mendoza about 5 years ago, with PMM and PLM. his symptoms are aggravated by ascending stairs, daily activities, first steps while awake walking. he has been treated with previous Durolane injections in the past without much relief. Principal Diagnosis left knee arthritis Discharge Exam Musculoskeletal left knee: NVDI, calf SNT, negative kodi sign. DP palpable, able to wiggle toes/ankle movement without difficulty. LAURE dressing clean dry and intact. expected post-operative bruising noted. Discharge Data Allergies Allergy/AdvReac Type Severity Reaction Status Date / Time cefuroxime Allergy Intermediate DIARRHEA Verified 12/12/21 11:34 gluten Allergy Unknown CELIAC Verified 12/12/21 11:34 DISEASE Ruhjaza-JCQ-SjA Reductase AdvReac Mild Muscle Pain Verified 12/12/21 11:34 Inhibitor Procedures Performed Operation Date: 12/12/21 13:50 Actual Procedures p Left Total Knee Arthroplasty(Left) - Rasheed Martinez DO Ordered Studies 12/12/21 05:00 US - OR guided needle placemen Routine Hospital Course (1) Arthritis of knee, left: POD 1 s/p left TKA PT/OT protocols. WBAT. Pt progressing well. DVT prophylaxis - ASA po bid, SCD's, LES's. Pain management as written. DC planning - Planning for services upon dc. Total Time Total Time Spent Total Time Spent (In Minutes): 20 Discharge Plan Discharge Items Patient Disposition: Home - Home Health Services Reason For Visit: Unilateral Primary Osteoarthritis Left Discharge Diagnosis: LEFT TOTAL KNEE REPLACEMENT Activity: Per Instructions section Weightbearing: Left weightbearing Weightbearing Comment: TOLERATED WITH WALKER Non-emergency contact: Surgeon Call non-emergency contact if: you have any medication questions, your temperature is above 101, your wound has increased redness, your wound has increased drainage and your wound pain has increased Follow-up/Referrals: Rasheed Martinez, [Surgeon] - (Follow up with Dr. Martinez or his PA Charlie León in 2 weeks for your first post operative check up. ) Sue Espinal MD [Primary Care Provider] - Diet: Regular Addtl Attending Provider Instructions: ACTIVITY RECOMMENDATIONS: SELF CARE INSTRUCTIONS AFTER TOTAL KNEE REPLACEMENT A. You may need to continue a physical therapy program after discharge from the hospital. There are several options available to you. Your doctor will assist you in selecting the best one for you. 1. An out-patient facility 2 to 3 times a week for therapy or home therapy. 2. Continue working on all exercises taught to you in the hospital. Your goals should be to increase bending of your knee to 90 degrees and beyond and to fully straighten your knee. B. You may progress at your own pace from walking with a walker or crutches to a cane; then to no assistive devices. C. Make walking a part of your daily routine. Be up as much as comfortable with rest periods throughout the day. Rest with leg elevation is very important. Use the ice wrap frequently for the first 3-4 weeks. D. There are no restrictions on activities. You may ride in a car, shop, participate in identification and records commander and all social activities. E. Wear the long elastic stockings (LES hose) 20 hours a day for 2 weeks after surgery. They can be removed several times a day for laundering and for a bath. F. You may shower, no tub baths until cleared by your doctor. SPECIAL CARE INSTRUCTIONS: VERY IMPORTANT TO READ AND REVIEW A. There are a few signs you need to watch for after you are home. Call [facility] if you notice any of the followin. Increased severe knee pain. Some pain is expected especially when you exercise. 2. Increased swelling in your leg or knee; pain or swelling of the calf muscle in either lower leg. 3. Any fluid drainage from the incision. 4. Shortness of breath or chest pain. B. Please call [facility] at if you have any concerns or questions about your operation or recovery. The doctor or his nurse will return your call promptly. C. You must take antibiotics before dental work, bladder, bowel or other surgery. Your doctor will provide you with a permanent care to carry describing this precaution. IMPORTANT: * REMEMBER TO TAKE ASPIRIN, 81 MG, TWICE DAILY FOR 4 WEEKS UNLESS OTHERWISE DIRECTED. THIS IS YOUR BLOOD THINNER. * HIGH RISK PATIENTS MAY BE PRESCRIBED A STRONGER BLOOD THINNER. THIS WILL BE PROVIDED AT DISCHARGE. * CALL IF INCREASED PAIN, REDNESS, DRAINAGE OR FEVER GREATER THAT 101. * WEAR LES HOSE 20 HOURS PER DAY FOR 2 WEEKS. * LAURE Dressing- This is a large suction dressing covering your incision. This will help pull any excess drainage from the wound and allow your incision to heal properly. You may shower with this if you can keep the unit outside of the shower. If any bleeding or leakage is noted please call your doctor's office. This will remain on your incision for 7 days and then should be removed. This can be done yourself or by the home nursing staff if applicable. The entire unit is disposable once removed. Once removed, keep incision clean and dry. If redness or drainage is noted, please call your surgeon. ONCE LAURE IS REMOVED, FOLLOW THESE INSTRUCTIONS: DERMABOND Prineo- This is a mesh tape dressing that is covered with glue. It should remain in place until the incision is properly healed, usually 10-14 days. This dressing is designed to naturally slough off. You may trim the excess mesh tape as it peels off. Incision may be briefly wet in a shower. Dry immediately by blotting with a clean, dry towel. Do not bath or swim until instructed by your doctor. Do not scratch, rub, or pick at the dressing. Do not apply any topical ointments or lotions until dressing is completely removed and/or instructed by your doctor. There may be a small piece of suture material at one end of your incision. Do not pull or trim this. If it is bothersome or catching on clothing, you may cover it with a band-aid. IF INCISION IS LEAKING THROUGH DRESSING, CALL THE OFFICE . FOLLOW UP VISIT: If appointment is not already scheduled: Please call [facility] to make a follow-up appointment for 2 weeks after your surgery at . Stand-Alone Forms: [facility], Smoking Cessation Medications and DC Order Prescriptions: New acetaminophen [Tylenol Extra Strength] 500 mg Tablet 1,000 mg PO Q8 14 Days Qty: 84 RF: 0 aspirin 81 mg Tablet,Delayed Release (Dr/Ec) 81 mg PO BID 30 Days Qty: 60 RF: 0 celecoxib [Celebrex] 200 mg Capsule 200 mg PO BID 30 Days Qty: 60 RF: 0 cefadroxil 500 mg capsule 500 mg PO BID Qty: 28 RF: 1 polyethylene glycol 3350 [Miralax] 17 gram powder in packet 17 g PO DAILY PRN (Reason: constipation) Qty: 5 RF: 0 oxycodone 5 mg Tablet 5 - 10 mg PO Q6H MDD 8 PRN (Reason: pain) Qty: 30 RF: 0 Continued fexofenadine 180 mg Tablet 180 mg PO QAM RF: 0 omeprazole 20 mg capsule,delayed release(DR/EC) 20 mg PO QAM RF: 0 irbesartan 150 mg tablet 150 mg PO QAM RF: 0 sertraline 50 mg tablet 50 mg PO QAM RF: 0 Centrum Silver 0.4-300-250 mg-mcg-mcg Tablet 1 tab PO QAM RF: 0 cholecalciferol (vitamin D3) [Vitamin D3] 50 mcg (2,000 unit) Tablet 50 mcg PO QAM RF: 0 Rybelsus 7 mg Tablet 7 mg PO QAM RF: 0 Discontinued oxycodone 5 mg Tablet 5 - 10 mg PO Q6H PRN (Reason: pain) Qty: 30 RF: 0 celecoxib [Celebrex] 200 mg Capsule 200 mg PO BID RF: 0 aspirin [Aspir-81] 81 mg Tablet,Delayed Release (Dr/Ec) 81 mg PO BID RF: 0 acetaminophen 500 mg Tablet 1,000 mg PO TID RF: 0 Discharge Orders: Discharge Order (Routine); Ordered 12/13/21 Ordered By: Lennox Acevedo Admission Data Admit Date/Time: 12/12/21 15:27 Attending Provider: Rasheed Martinez Admit Provider: Rasheed Martinez Primary Care Provider: Sue Espinal
[2021-12-13] MEDS: KETOROLAC 30 MG/ML VIAL IV SCH ×2 (15:26→21:54)
[2021-12-13] MEDS: SENNA 8.6 MG TAB PO SCH (20:35)
[2021-12-13] MEDS ORDERED: CeleBREX 200 MG CAP PO SCH (21:00)
[2021-12-14] MEDS: oxyCODONE HCL IR 5 MG TAB (IMMEDIATE RELEASE) PO PRN ×3 (00:28→08:28)
[2021-12-14] MEDS: KETOROLAC 30 MG/ML VIAL IV SCH ×2 (03:54→10:15)
[2021-12-14] MEDS: ACETAMINOPHEN 500 MG TAB PO SCH (05:53)
[2021-12-14] MEDS: INSULIN ASPART PER UNIT SC SCH (08:19)
[2021-12-14] MEDS: ASPIRIN 81 MG ECTAB PO SCH (08:28)
[2021-12-14] MEDS: MULTIVITAMIN TAB PO SCH (08:28)
[2021-12-14] MEDS: FEXOFENADINE HCL 180 MG TAB PO SCH (08:28)
[2021-12-14] MEDS: DOCUSATE SODIUM 100 MG CAP PO SCH (08:28)
[2021-12-14] MEDS: SERTRALINE HCL 50 MG TABLET PO SCH (08:29)
[2021-12-14] MEDS: IRBESARTAN 150 MG TAB PO SCH (08:29)
[2021-12-14] MEDS: CHOLECALCIFEROL 1,000 UNITS 25 MCG TAB PO SCH (08:29)
--- NOTE | 2021-12-14 08:45 | Orthopedic Progress Note ---
Date of Service December 14, 2021 Assessment & Plan (1) Arthritis of knee, left: Plan: POD 2 s/p left TKA PT/OT protocols. WBAT. Pt progressing well. DVT prophylaxis - ASA po bid, SCD's, LES's. Pain management as written. DC planning - Planning for services upon dc. Plan for discharge to home today. Admission and Anticipated Discharge Date Admission Date: December 12, 2021 Subjective Postop day 2 Patient up and eating breakfast this morning in bed. States he was able to get a fair amount of sleep last night and feels much better. Still having pain in the operative knee but is controlled at this time. Questions answered patient wanting to go home today. He has been essentially independent with his ambulation. Physical Exam Physical Exam: Dressings are clean, dry, and intact. Calves are soft nontender. Neurovascular intact. Toes are mobile. Results & Data ([facility]) Vital Signs (Past 12 Hours) Vital Signs Temp Pulse Resp BP BP Pulse Ox 12/14/21 07:05 37.0 C 70 16 120/72 98 12/13/21 21:43 36.8 C 84 20 153/84 H 96
== END 2021-12-14 11:10 | disposition home health service (06) ==
LOC: ASU 10:57 → 3N 10:57

== ENCOUNTER 2024-04-20 07:44 | Inpatient (IN) ==
--- NOTE | 2024-04-14 15:50 | Anesthesiology Consultation ---
Date of Service April 14, 2024 Assessment & Plan (1) Encounter for pre-operative examination: - Check BSG DOS - Infectious disease screening: Per assessment on 04/14/24- No known recent infectious disease contacts or current infectious disease symptoms. - S/P Right TKA (12/12/2021): SAB at L3-4 + regional at [facility] - Cardiology visit (12/26/23): "..unable to tolerate any statins in the past due to joint pain.. increase his irbesartan to 300mg daily.. He has a systolic murmur. I will have him get an echo.." > Echo done 02/2024 noted moderate aortic stenosis (also noted on previous 2019 Echo to same degree). Chart Review Chart Review: Acceptable Risk for Surgery and Patient seen in Pre Admission Testing Teaching & Discussion Pre-Anesthesia Teaching/Discussion Notes: Instructed NPO after midnight before surgery,except medications with 15 cc of water. Medication instructions provided according to the PAT guidelines. History Surgery Operation Date: 04/20/24 08:00 Proposed Procedures p Left Common Femoral Endarterectomy, Possible Left Superficial Femoral Artery Bypass - Wyatt Sánchez MD s Left Iliac Stenting, - Wyatt Sánchez MD Height/Weight Height: 6 ft 2 in Weight: 105.3 kg Allergies Allergy/AdvReac Type Severity Reaction Status Date / Time gluten Allergy Unknown Celiac Verified 04/14/24 16:05 disease cefuroxime AdvReac Intermediate Diarrhea Verified 04/14/24 16:05 Yfjfbln-XNG-HwH Reductase AdvReac Intermediate Muscle Pain Verified 04/14/24 16:05 Inhibitor Medications Home Medications Medication Instructions Recorded Confirmed Last Taken cholecalciferol (vitamin D3) 50 50 mcg PO QAM 05/02/21 04/14/24 02/12/24 04:30 mcg (2,000 unit) tablet (Vitamin D3) fexofenadine 180 mg tablet 180 mg PO QAM 05/02/21 04/14/24 02/12/24 04:30 ngydtiuk-uxx-ejrcy acid 0.4 1 tab PO QAM 05/02/21 04/14/24 05/02/21 mg-lycopene 300 mcg-lutein 250 mcg tablet (Centrum Silver) omeprazole 20 mg capsule,delayed 20 mg PO QAM 05/02/21 04/14/24 02/12/24 04:30 release sertraline 50 mg tablet (Zoloft) 50 mg PO QAM 05/02/21 04/14/24 02/12/24 04:30 diazepam 2 mg tablet (Valium) 2 mg PO DIRECTED PRN Anxiety 02/13/24 04/14/24 02/13/24 04:00 clobetasol 0.05 % topical ointment 1 applic topical DAILY 04/14/24 04/14/24 Unknown empagliflozin 10 mg tablet 10 mg PO QAM 04/14/24 04/14/24 Unknown (Jardiance) evolocumab 140 mg/mL subcutaneous See Rx Instructions .Route .COMPLEX 04/14/24 04/14/24 Unknown syringe (Repatha Syringe) gabapentin 300 mg capsule 300 mg PO TID 04/14/24 04/14/24 Unknown irbesartan 300 mg tablet 300 mg PO QAM 04/14/24 04/14/24 Unknown Past Medical History Medical History (Updated 04/16/24 @ 00:06 by Cindy Garcia) Anemia Aortic stenosis Under surveillance Echo 02/2024: Moderate aortic stenosis Arthritis Celiac disease Claudication of left lower extremity Coronary artery calcification Follows with Dr. Varma Degenerative disc disease Depression Diabetes mellitus, type 2 GERD (gastroesophageal reflux disease) Hyperlipidemia Hypertension Needle phobia Reports anxiety with needles, occasional vasovagal syncope in related settings Neuropathy Sleep apnea CPAP Spinal stenosis Exercise / Class Metabolic Activity II 4-5 Yardwork/Stairs/Walk up hill Past Surgical History Surgical History History of arthroscopy Bilateral knees Left knee arthroscopy with partial medial and lateral meniscectomy, removal loose bodies History of colonoscopy History of esophagogastroduodenoscopy (EGD) History of spinal surgery L3-5 History of tooth extraction Hx of hernia repair As infant Hx of laminectomy Lumbar Hx of surgical procedure 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 Hx of wisdom tooth extraction PONV (postoperative nausea and vomiting) 1991 with wisdom tooth extraction Status post total left knee replacement Status post total right knee replacement Right TKA: SAB at L3-4 + regional at [facility] (12/12/21) Past Anesthesia History No Hx of Anesthesia Complications and No Family Hx of Anesthesia Complications History of PONV No Hx of Motion Sickness and History of PONV Social History Smoking Status: Never smoker Do You Dip or Chew Tobacco: No Hx Alcohol Use: Yes Alcohol type: hard liquor alcohol intake frequency: a few times a week Hx Substance Use: No substance use type: does not use Review of Systems Patient denies chest pain, shortness of breath, dyspnea on exertion, fever, chills, cough, wheezing, palpitations. Physical Exam Vital Signs BP 133/86 P 83 SP02 98%RA RESP 18 Physical Full cervical extension range of motion. Full TMJ range of motion. TMD 3 finger breaths Mallampati Score III Dentition: missing tooth Lungs: clear throughout to auscultation Cardiac: regular rate and rhythm, III/ systolic murmur with faint carotid radiation Spine: normal Extremities: no LE edema Lab Results Anesthesia Preop Results Results Anesthesia Widget: WBC 6.03 K/ul (4.8-10.8) 04/14/24 Hgb 11.8 g/dl (14.0-18.0) L 04/14/24 Hct 36.3 % (42.0-52.0) L 04/14/24 Plt 197 K/uL (130-400) 04/14/24 Na 134 mmol/L (136-145) L 04/14/24 K 4.3 mmol/L (3.5-5.1) 04/14/24 Cl 100 mmol/L (98-107) 04/14/24 CO2 24 mmol/L (21-32) 04/14/24 BUN 24 mg/dl (6-23) H 04/14/24 Creat 0.77 mg/dl (0.6-1.4) 04/14/24 Glucose Level 89 mg/dl (70-99(Fasting)) 04/14/24 PT 11.0 Seconds (9.0-12.0) 04/14/24 PTT 26 Seconds (21-31) 04/14/24 INR 1.0 (0.9-1.1) 04/14/24 HA1c 6.2 % (4.5-5.6) H 04/14/24 Blood Type O Positive 04/14/24 Antibody Screen NEGATIVE 04/14/24 Testing Laboratory Results Anemia stable* Electrocardiogram Date: 04/14/24 NSR at 81bpm. Chest X-Ray Date: 04/14/24 FINDINGS: The cardiomediastinal silhouette and pulmonary vasculature appear within normal limits. No infiltrate, pleural effusion or pneumothorax. No acute osseous abnormality evident. IMPRESSION: No acute cardiopulmonary process. Echocardiogram Date: 03/03/24 EF 60%. No LVH. Grade II DD. No RWMA. Severe LAD. Calcified, tricuspid AV. Moder ate aortic stenosis (Mean PG 32mmhg, LVOT/AV ratio is 0.32). Mild MR.
--- NOTE | 2024-04-14 16:17 | PAT Medication Instructions ---
Medication Instructions Date of Service April 14, 2024 Home Medications cholecalciferol (vitamin D3) 50 mcg (2,000 unit) tablet (Vitamin D3) 50 mcg PO QAM fexofenadine 180 mg tablet 180 mg PO QAM zauhxurl-nuj-pztne acid 0.4 mg-lycopene 300 mcg-lutein 250 mcg tablet (Centrum Silver) 1 tab PO QAM omeprazole 20 mg capsule,delayed release 20 mg PO QAM sertraline 50 mg tablet (Zoloft) 50 mg PO QAM diazepam 2 mg tablet (Valium) 2 mg PO DIRECTED PRN clobetasol 0.05 % topical ointment 1 applic topical DAILY empagliflozin 10 mg tablet (Jardiance) 10 mg PO QAM evolocumab 140 mg/mL subcutaneous syringe (Repatha Syringe) See Rx Instructions .Route .COMPLEX gabapentin 300 mg capsule 300 mg PO TID irbesartan 300 mg tablet 300 mg PO QAM STOP 3 days before surgery empagliflozin 10 mg tablet (Jardiance) 10 mg PO QAM Continue as directed diazepam 2 mg tablet (Valium) 2 mg PO DIRECTED PRN(if needed) ASK your prescriber and surgeon evolocumab 140 mg/mL subcutaneous syringe (Repatha Syringe) See Rx Instructions .Route .COMPLEX STOP taking 24 hours before surgery clobetasol 0.05 % topical ointment 1 applic topical DAILY DO NOT take the morning of surgery cholecalciferol (vitamin D3) 50 mcg (2,000 unit) tablet (Vitamin D3) 50 mcg PO QAM fexofenadine 180 mg tablet 180 mg PO QAM vkxjyfvx-wtb-ecvpn acid 0.4 mg-lycopene 300 mcg-lutein 250 mcg tablet (Centrum Silver) 1 tab PO QAM irbesartan 300 mg tablet 300 mg PO QAM Take morning of surgery With a small sip of water, OTHERWISE NOTHING TO EAT OR DRINK AFTER MIDNIGHT: omeprazole 20 mg capsule,delayed release 20 mg PO QAM sertraline 50 mg tablet (Zoloft) 50 mg PO QAM gabapentin 300 mg capsule 300 mg PO TID Take evening before surgery gabapentin 300 mg capsule 300 mg PO TID Other Notes If you have any questions please call us at [phone] or [phone] or [phone] or [phone]
--- NOTE | 2024-04-20 07:43 | History & Physical Report ---
Date of Service April 20, 2024 Assessment & Plan (1) Claudication of left lower extremity: Plan: Patient for left common femoral endarterectomy with possible iliac stenting and possible fem pop bypass. I have discussed the risks options and benefits of the procedure with the patient. The patient understands the risks options and benefits and agrees to the procedure. 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 He has a known left iliac artery stenosis as well as infrainguinal disease, mostly femoral disease. We did attempt endovascular intervention of his SFA disease but were unable to cross the lesion. He presents for follow up to discuss a femoral endarterectomy with possible retrograde iliac stenting of the left lower extremity. As far as symptoms, he does state he has noticed increasing intermittent pain on the sole of the foot that improves with elevation of the leg instead of with dangling. He does have history of sciatic nerve pain. He has not noticed discoloration of the feet or toes. He thinks his feet are sometimes cool but this improves with socks. He does not have any open wounds. No weakness of the lower extremities at baseline. He is on a baby aspirin. He is not on a statin as he gets severe myalgias with this. Allergies Allergy/AdvReac Type Severity Reaction Status Date / Time gluten Allergy Unknown Celiac Verified 04/14/24 16:05 disease cefuroxime AdvReac Intermediate Diarrhea Verified 04/14/24 16:05 Geucrff-PXJ-ImC Reductase AdvReac Intermediate Muscle Pain Verified 04/14/24 16:05 Inhibitor Home Medications Medication Instructions Recorded Confirmed Type cholecalciferol (vitamin D3) 50 50 mcg PO QAM 05/02/21 04/14/24 History mcg (2,000 unit) tablet (Vitamin D3) fexofenadine 180 mg tablet 180 mg PO QAM 05/02/21 04/14/24 History tnbolgpp-rba-mmfhc acid 0.4 1 tab PO QAM 05/02/21 04/14/24 History mg-lycopene 300 mcg-lutein 250 mcg tablet (Centrum Silver) omeprazole 20 mg capsule,delayed 20 mg PO QAM 05/02/21 04/14/24 History release sertraline 50 mg tablet (Zoloft) 50 mg PO QAM 05/02/21 04/14/24 History diazepam 2 mg tablet (Valium) 2 mg PO DIRECTED PRN Anxiety 02/13/24 04/14/24 History clobetasol 0.05 % topical ointment 1 applic topical DAILY 04/14/24 04/14/24 History empagliflozin 10 mg tablet 10 mg PO QAM 04/14/24 04/14/24 History (Jardiance) evolocumab 140 mg/mL subcutaneous See Rx Instructions .Route .COMPLEX 04/14/24 04/14/24 History syringe (Repatha Syringe) gabapentin 300 mg capsule 300 mg PO TID 04/14/24 04/14/24 History irbesartan 300 mg tablet 300 mg PO QAM 04/14/24 04/14/24 History Past Med/Surg History Problem List Encounter for pre-operative examination Medical History Anemia Neuropathy Arthritis Claudication of left lower extremity Aortic stenosis Under surveillance Echo 02/2024: Moderate aortic stenosis Coronary artery calcification Follows with Dr. Varma Needle phobia Reports anxiety with needles, occasional vasovagal syncope in related settings Spinal stenosis Degenerative disc disease GERD (gastroesophageal reflux disease) Diabetes mellitus, type 2 Depression Hyperlipidemia Hypertension Sleep apnea CPAP Celiac disease Surgical History Hx of wisdom tooth extraction PONV (postoperative nausea and vomiting) 1991 with wisdom tooth extraction Status post total left knee replacement Hx of laminectomy Lumbar Status post total right knee replacement Right TKA: SAB at L3-4 + regional at [facility] (12/12/21) History of arthroscopy Bilateral knees Left knee arthroscopy with partial medial and lateral meniscectomy, removal loose bodies History of esophagogastroduodenoscopy (EGD) History of colonoscopy Hx of hernia repair As infant History of tooth extraction Hx of surgical procedure 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 History of spinal surgery L3-5 Social History Smoking Status: Never smoker Second Hand Exposure: No; Do You Dip or Chew Tobacco: No; Tobacco Cessation Education Requested by Patient: No Hx Alcohol Use: Yes Alcohol type: hard liquor Hx Substance Use: No Preferred Language: Yakut Communication Ability: Effective Packer Required: No Beliefs That Will Affect Care: None marital status: Single Current Living Situation: Alone Other Information That Helps Us Care for You: No Feels Safe at Home: Yes Safety Concerns: Feels Safe At This Time Assistive Devices: CPAP and Glasses Review of Systems All systems reviewed & are unremarkable except as noted in HPI & below Physical Exam Constitutional: WD/WN, vitals as above Respiratory: normal respiratory effort, lungs clear to auscultation Cardiovascular: RRR, no murmur, no edema . Bilateral femoral pulses are palpable, 2+. Bilateral lower extremities are warm and well perfused with no areas of discoloration. There are no open wounds visible. The right foot has AT and PT signals present. The left foot has a faint AT signal present. Unable to find a PT signal but there is a multiphasic left popliteal artery signal present. There is minimal numbness of the left toes at baseline, no numbness of the rest of the foot. No numbness of the right foot. No weakness in bilateral lower extremities. Gastrointestinal (Abdomen): normal bowel sounds, soft, nontender, no hepatosplenomegaly Neurologic: CN's II-XI intact bilaterally and moves all extremities Psychiatric: A+Ox3, euthymic affect
[2024-04-20] MEDS: LACTATED RINGER'S 1,000 ML IV SCH (11:10)
[2024-04-20] MEDS ORDERED: SUGAMMADEX SODIUM 200 MG/2 ML VIAL IV ONE (11:44)
[2024-04-20] MEDS ORDERED: DEXAMETHASONE SOD INJ 4 MG/ML VIAL ONE (11:44)
[2024-04-20] MEDS ORDERED: ONDANSETRON INJ 2 MG/ML 2 ML VIAL ONE (11:44)
[2024-04-20] MEDS ORDERED: MIDAZOLAM HCL 1 MG/ML 2ML VIAL ONE (11:44)
[2024-04-20] MEDS ORDERED: PROPOFOL IV EMULSION 10 MG/ML 20 ML VIAL IV ONE ×2 (11:44→18:30)
[2024-04-20] MEDS ORDERED: LIDOCAINE 2% 2 ML VIAL/AMP(20MG/ML) INFIL ONE (11:44)
[2024-04-20] MEDS ORDERED: fentaNYL citrate PF 100 MCG/2 ML VIAL ONE ×3 (11:44→17:59)
[2024-04-20] MEDS ORDERED: ROCURONIUM BROMIDE 10 MG/ML 5 ML VIAL IV ONE ×3 (11:44→16:44)
[2024-04-20] MEDS ORDERED: ePHEDrine sulfate 50 MG/ML AMP ONE (11:44)
[2024-04-20] MEDS ORDERED: SODIUM CHLORIDE 0.9% PF INJ 10 ML VIAL ONE (11:45)
[2024-04-20] MEDS ORDERED: NALOXONE HCL 0.4 MG/1 ML VIAL/CARP IV PRN (12:53)
[2024-04-20] MEDS ORDERED: PROMETHAZINE HCL 6.25 MG in SODIUM CHLORIDE 0.9% 50 ML IV PRN (12:53)
[2024-04-20] MEDS ORDERED: LABETALOL HCL IV 5 MG/ML 20ML IV PRN (12:53)
[2024-04-20] MEDS ORDERED: FLUMAZENIL 0.1 MG/1 ML 10 ML VIAL IV PRN (12:53)
[2024-04-20] MEDS ORDERED: ATROPINE SULFATE 0.1 MG/ML 10ML SYR IV PRN (12:53)
[2024-04-20] MEDS ORDERED: ONDANSETRON INJ 2 MG/ML 2 ML VIAL IV PRN (12:53)
[2024-04-20] MEDS ORDERED: ePHEDrine sulfate 50 MG/ML AMP IV PRN (12:53)
[2024-04-20] MEDS ORDERED: fentaNYL citrate PF 100 MCG/2 ML VIAL IV PRN (12:53)
[2024-04-20] MEDS ORDERED: HYDROmorphone INJ 1 MG/ML SYRINGE IV PRN (12:53)
--- NOTE | 2024-04-20 14:26 | History & Physical Bridge Note ---
Date of Service April 20, 2024 History & Physical Bridge Note I have examined the patient, reviewed the History & Physical and in the interval since the performance of the History & Physical I have noted the following changes of clinical significance: no changes noted
[2024-04-20] MEDS: CLINDAMYCIN/D5W 900 MG/50 ML BAG IV SCH ×2 (14:53→23:24)
[2024-04-20] MEDS: ceFAZolin 330 MG/ML 1 GM VIAL ONE (16:05)
--- OUTSIDE RECORDS SUMMARY | 2024-04-20 16:44 | External Medical Summary | Continuity of Care Document ---
Author Name Unknown Organization [address] Address [address] [place] [address] [id number] Care Team Providers Care Quality Internship Name Role Phone Sue Espinal Primary Care Physician [phone] [facility]counter [id number] Date(s): 04/12/24 - 04/12/24 [facility] [address], [address] [place] [address] [phone] Discharge Disposition: Home or Self Care Attending Physician: MD Gonzalo, Wyatt Means Referring Physician: MD Espinal Tracy A Allergies, Adverse Reactions, Alerts Substance Criticality Severity Reaction Reaction Severity Status Ceftin diarrhea Active Dust sneezing Active Ragweed sneezing, nasal Acti ve shellfish Rash Active Statins (HMG-CoA reductase inhibitors) Myalgia Arthralgia Active Mold sneezing Active Glutens GI upset Active Medications Aspir 81 Start: 04/11/21 1:58:00 PM EDT, 81 mg =, PO, Daily Start Date: 04/11/21 Status: Ordered bempedoic acid 180 mg oral tablet Start: 03/30/24 4:44:00 PM EDT, 1 tab, PO, Daily, Disp# 30 tab, Refills: 11, Pharmacy: [facility] Start Date: 03/30/24 Status: Ordered celecoxib 200 mg oral capsule TAKE ONE CAPSULE BY MOUTH EVERY DAY FOR JOINT PAIN Start Date: 01/19/24 Status: Ordered fexofenadine 180 mg oral tablet Start: 12/15/23 2:41:00 PM EDT, 1 tab, PO, Daily, PRN: as needed for allergy symptoms Start Date: 12/15/23 Status: Ordered irbesartan 300 mg oral tablet Start: 03/04/24 5:36:00 PM EDT, 1 tab, PO, Daily, Disp# 90 tab, Refills: 3, Pharmacy: [email or web address] Start Date: 03/04/24 Status: Ordered Jardiance 10 mg oral tablet TAKE ONE TABLET BY MOUTH EVERY MORNING FOR BLOOD SUGAR / KIDNEY / HEART Start Date: 01/19/24 Status: Ordered omeprazole 20 mg oral delayed release capsule TAKE ONE CAPSULE BY MOUTH EVERY DAY 30 MINUTES PRIOR TO BREAKFAST ON AN EMPTY STOMACH Start Date: 01/19/24 Status: Ordered predniSONE 50 mg oral tablet Start: 01/19/24 4:34:00 PM EDT, See Instructions, Disp# 3 tab, Refills: 0, 1 tab PO q8h Start 12 hr before procedure/study, Pharmacy: [email or web address] Start Date: 01/19/24 Status: Ordered predniSONE 50 mg oral tablet Start: 02/23/24 4:24:00 PM EDT, See Instructions, Disp# 3 tab, Refills: 0, 1 tab PO q8h Start 12 hr before procedure/study, Pharmacy: [email or web address] Start Date: 02/23/24 Status: Ordered predniSONE 50 mg oral tablet Start: 12/15/23 3:13:00 PM EDT, See Instructions, Disp# 3 tab, Refills: 0, 1 tab PO q8h Start 12 hr before procedure/study, Pharmacy: [email or web address] Start Date: 12/15/23 Status: Ordered Repatha Prefilled Syringe 140 mg/mL subcutaneous solution Start: 02/17/24 11:14:00 AM EDT, 140 mg =, subQ, [id number], Disp# 6 each, Refills: 3, Pharmacy: [email or web address] Start Date: 02/17/24 Status: Ordered sertraline Start: 04/11/21 1:59:00 PM EDT, 50 mg =, PO, Daily Start Date: 04/11/21 Status: Ordered Vitamin D3 Start: 04/11/21 1:59:00 PM EDT, 25 mcg =, PO, Daily Start Date: 04/11/21 Status: Ordered Problem List Condition Confirmation Course Effective Dates Status H ealth Status Informant Coronary artery calcification Confirmed Active CD (celiac disease) Confirmed Active History of lumbar laminectomy Confirmed Active HTN (hypertension) Confirmed Active Claudication Confirmed Active CRISTIANA (obstructive sleep apnea) Confirmed Active Chronic knee pain Confirmed Active Colon polyp Confirmed Active Apnea, sleep Confirmed Active Lumbar stenosis Confirmed Active Tobacco user Confirmed Active Weight disorder Confirmed Active Procedures Procedure Date Related Diagnosis Body Site Status aortogram w BLE runoff 02/13/24 Co mpleted Colonoscopy 1 05/20/22 Completed Repair of meniscus 2008 Comple wil Bilateral inguinal hernia repair 1963 Completed 1COLO to cecum, 2 mm sigmoid polyp CF, 6 mm AC polyp CS, 30 mm AC polyp bx and tattoo, DC polyp 3 mmCF, diverticulosis, hemorrhoids, AC lipoma. Results Radiology Reports * Exam Date Time Procedure Performing Provider Status 04/12/24 3:25 PM VL Vein Mapping Lower Extremity Preop Keyla Montgomery; Final Notes: (VL Vein Mapping Lower Extremity Preop) Reason For Exam: PRE OP FOR LEG BYPASS VL Vein Mapping Lower Extremity Preop [facility] FINAL REPORT Name: DL STARR : 1960 Visit: [id number] Date: 12 Apr 2024 TYPE OF TEST: Peripheral Venous Testing REASON FOR TEST Claudication - pre op LE bypass vein mapping - Left INTERPRETATION/FINDINGS Venous imaging of the left great and small saphenous veins was performed. 1. No evidence of superficial venous thrombosis identified left great saphenous vein and it appears continuous, patent and compressible from ankle to SFJ. The left great saphenous measurement range is 3.5mm-7.6mm. Medial proximal calf varices noted 2. The small saphenous vein at the saphenopopliteal junction and proximal calf is patent but partially compressible with brightly echogenic material suggesting chronic venous changes. The remining mid-distal calf segments appear patent and compressible with diameters ranging from 2.5mm-4.2mm Retrospective comparison: No prior venous mapping available for comparison. IMPRESSION/COMMENTS I have personally reviewed the data relevant to the interpretation of this study. TECHNOLOGIST: PENELOPE Stanton,RDMS,RVT PHYSICIAN: Wyatt Sánchez M.D. Signed: 04/13/2024 01:01 PM Final Dictated by:MD Sánchez Eugene J Dictated DT/TM:04/13/2024 1:01 Signed by:MD Sánchez Eugene J Signed (Electronic Signature):04/13/2024 1:01 p Transcribed by:EJS Social History Social History Type Response Smoking Status Former Smoker, quit > 1 yr Sex Male Sex Representation Male (finding) Patient Care team information Care Team Personnel Name: MD Kylie, Sue Ly Position: Referring Member Role: Primary Care Provider Address: [address] [place] [address] [place] Care Team Related Persons Name: BINH TY
[2024-04-20] MEDS ORDERED: HEPARIN SOD (PORCINE) 1000 UNIT/ML ONE (16:51)
[2024-04-20] MEDS: VISIPAQUE IV ONE (16:57)
[2024-04-20] MEDS: GELATIN SPONGE SZ 100 ONE (18:14)
[2024-04-20] MEDS: THROMBIN FOR SOLN 20000 UNIT KIT ONE (18:37)
[2024-04-20] MEDS: HEPARIN (PORCINE) 1000 UNIT/ML 10 ML (CATH LAB USE ONLY) ONE (18:46)
--- NOTE | 2024-04-20 18:59 | Post Operative Brief Note ---
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 Post-Op Diagnosis: Left Iliac Artery and Common Femoral Artery Stenosis I identified the patient and participated in the time-out.: Yes Procedure Operation Date: 04/20/24 11:50 Actual Procedures p Left Common Femoral Endarterectomy with bovine patch, and Left Proximal Superficial Femoral Artery to popliteal Bypass(Left) - Wyatt Sánchez MD Surgeon Wyatt Sánchez MD Roller Presser Operator Kimber,PAC Estimated Blood Loss 350 Findings Consistent with Post-Op Diagnosis Drains Pardo Catheter Anesthesia Type General Complications none Disposition Accompanied Patient To Recovery: No Disposition: Recovery Room
[2024-04-20 19:34] LABS: Basophils # (auto) 0.01 K/uL (0.00-0.20); Basophils % (auto) 0.2 %; Eosinophils # (auto) 0.01 K/uL (0.00-0.50); Eosinophils % (auto) 0.2 %; Hemoglobin 10.3 g/dl (14.0-18.0); Immature Granulocytes # (auto) 0.03 K/uL (0.01-0.20); Immature Granulocytes % (auto) 0.5 %; Lymphocytes # (auto) 0.64 K/uL (1.20-3.40); Lymphocytes % (auto) 10.7 %; Mean Corpuscular Hemoglobin 27.2 pg (25.0-34.0); Mean Corpuscular Hgb Conc 31.2 g/dL (32.0-36.0); Mean Corpuscular Volume 87.1 fL (80.0-100.0); Monocytes # (auto) 0.14 K/uL (0.11-0.59); Monocytes % (auto) 2.3 %; Neutrophils # (auto) 5.14 K/uL (1.40-6.50); Neutrophils % (auto) 86.1 %; Platelet Count 173 K/uL (130-400); RDW Coefficient of Variation 18.1 % (11.5-14.5); RDW Standard Deviation 57.6 fL (36.4-46.3); Red Blood Count 3.79 M/uL (4.70-6.10); White Blood Count 5.97 K/ul (4.8-10.8)
--- NOTE | 2024-04-20 19:37 | Anesthesiology Progress Note ---
Date of Service April 20, 2024 Anesthesia Post Procedure Vital Signs Vital Signs: Temp Pulse Resp BP BP BP Pulse Ox 04/20/24 19:25 98 H 12 141/70 H 147/91 H 93 04/20/24 19:15 106 H 16 143/71 H 153/91 H 91 04/20/24 19:08 36.3 C L 113 H 18 152/74 H 137/88 95 04/20/24 10:27 37 C 83 20 163/107 H 156/88 H 97 O2 Del Method 04/20/24 19:25 Room Air 04/20/24 19:15 Room Air 04/20/24 19:08 Room Air 04/20/24 10:27 Room Air Pain Intensity Left Hip: Pain Intensity: 4 Transfer of Care Handoff Completed per policy Notes Mental Status: alert / awake / arousable Patient Amnestic to Procedure: Yes Nausea / Vomiting: adequately controlled Pain: adequately controlled Airway Patency, RR, SpO2: stable & adequate BP & HR: stable & adequate Hydration State: stable & adequate Anesthetic Complications: no major complications apparent
[2024-04-20] MEDS ORDERED: diazePAM 2 MG TABLET PO PRN (20:10)
--- NOTE | 2024-04-20 20:25 | Critical Care Consultation ---
Date of Consultation April 20, 2024 Assessment & Plan (1) PAD (peripheral artery disease): Plan Reason Critically Ill: 63 YOM s/p Left Common Femoral Endarterectomy with bovine patch, and Left Proximal Superficial Femoral Artery to popliteal Bypass(Left) performed by Dr. Sánchez- to ICU for hemodyanmic monitoring and NV/CV exams of lower extremity. Neuro - Acute Pain post surgical CAM ICU: Negative - Pain control per admitting surgical team - for his chronic neuropathy pain continue with gabapentin Cardiac - PAD Left Common Femoral Endarterectomy with bovine patch, and Left Proximal Superficial Femoral Artery to popliteal Bypass(Left), HTN, HLD - PAD s/p Left Common Femoral Endarterectomy with bovine patch, and Left Proximal Superficial Femoral Artery to popliteal Bypass(Left) - NV/CV exams with Doppler - Dressings per surgical service - Continue antihypertensives or pharmacy equivalent as hemodynamics permit and renal function permits- BMP in am. - Antiplatelet medications per surgical service - postoperative abx per primary surgical service Respiratory - CRISTIANA with CPAP - CPAP with home machine- wear at night and while napping while receiving multimodal pain medications GI - GERD - Continue PPI - Diet advance as tolerated RENAL/LYTES - No acute needs - Follow renal function in am - continue ARB if remains stable - Electrolytes replace as needed - No acute needs ENDO - DMII - ICU hyperglycemic protocol- goal <180mg/DL- - Continue Jardiance in am HEME - No acute needs - EBL 350ml- CBC in am per primary service - Blood transfusion per primary service or acute blood loss ID - No concern for infective process at this time - postoperative abx per primary surgical service LINES/IV ACCESS - Rossana JOINER Continue use of these lines - remove arterial line when appropriate DVT PROPHYLAXIS - SCDS, chemoprophylaxis per primary surgical service when hemostasis determined to be adequate DISPO: ICU until hemodynamics proven stable and postoperative NV/CV exams deemed stable by surgical service I have personally spent 40 minutes of time in the direct management of this patient. This is a life/limb threatening event. This includes time spent evaluating patient, direct bedside care, chart review, placing orders, interp retation of diagnostic studies, discussion with consultants, patient, and family members, as well as other required patient management activities. This time is exclusive of all separately billable procedures, and teaching time and separate from and in addition to any other service time. Thank you for allowing us to participate in the care of this patient. Please refer to my attending physician's documentation for any further recommendations. History of Present Illness Reason for Consultation: Left Common Femoral Endarterectomy with bovine patch, and Left Proximal Superficial Femoral Artery to popliteal Bypass(Left) Requesting Physician: Wyatt Sánchez MD Attending Physician: Wyatt Sánchez MD History of Present Illness 63 YOM with medical history of: CRISTIANA, PAD, HTN, Celiac Disease, Smoker- quit 2013, Arthritis with Bilateral knee replacements. 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 He is POD #0 and with reported EBL of 350ml. Patient arrives to the ICU awake on room air, on no vasoactive medications. His Left leg is warm and pulses palpable and dopperlable where they are marked from surgery. He has brought his home CPAP with him and his is getting it from the car now. Pain is currently controlled. Patient will remain ICU overnight for hemodynamic following and frequent CV/NV checks of his extremities. CODE: FULL Allergies Allergy/AdvReac Type Severity Reaction Status Date / Time gluten Allergy Unknown Celiac Verified 04/20/24 10:24 disease cefuroxime AdvReac Intermediate Diarrhea Verified 04/20/24 10:24 Vrddjbv-[id number] Reductase AdvReac Intermediate Muscle Pain Verified 04/20/24 10:24 Inhibitor Home Medications Medication Instructions Recorded Confirmed Type cholecalciferol (vitamin D3) 50 50 mcg PO QAM 05/02/21 04/20/24 History mcg (2,000 unit) tablet (Vitamin D3) fexofenadine 180 mg tablet 180 mg PO QAM 05/02/21 04/20/24 History xfvbofgf-ygi-fllkq acid 0.4 1 tab PO QAM 05/02/21 04/20/24 History mg-lycopene 300 mcg-lutein 250 mcg tablet (Centrum Silver) omeprazole 20 mg capsule,delayed 20 mg PO QAM 05/02/21 04/20/24 History release sertraline 50 mg tablet (Zoloft) 50 mg PO QAM 05/02/21 04/20/24 History diazepam 2 mg tablet (Valium) 2 mg PO DIRECTED PRN Anxiety 02/13/24 04/20/24 History clobetasol 0.05 % topical ointment 1 applic topical DAILY 04/14/24 04/20/24 History empagliflozin 10 mg tablet 10 mg PO QAM 04/14/24 04/20/24 History (Jardiance) evolocumab 140 mg/mL subcutaneous See Rx Instructions .Route .COMPLEX 04/14/24 04/20/24 History syringe (Repatha Syringe) gabapentin 300 mg capsule 300 mg PO TID 04/14/24 04/20/24 History irbesartan 300 mg tablet 300 mg PO QAM 04/14/24 04/20/24 History Patient History Medical History Anemia Neuropathy Arthritis Claudication of left lower extremity Aortic stenosis Under surveillance Echo 02/2024: Moderate aortic stenosis Coronary artery calcification Follows with Dr. Varma Needle phobia Reports anxiety with needles, occasional vasovagal syncope in related settings Spinal stenosis Degenerative disc disease GERD (gastroesophageal reflux disease) Diabetes mellitus, type 2 Depression Hyperlipidemia Hypertension Sleep apnea CPAP Celiac disease Surgical History Hx of wisdom tooth extraction PONV (postoperative nausea and vomiting) 1991 with wisdom tooth extraction Status post total left knee replacement Hx of laminectomy Lumbar Status post total right knee replacement Right TKA: SAB at L3-4 + regional at [facility] (12/12/21) History of arthroscopy Bilateral knees Left knee arthroscopy with partial medial and lateral meniscectomy, removal loose bodies History of esophagogastroduodenoscopy (EGD) History of colonoscopy Hx of hernia repair As History of tooth extraction Hx of surgical procedure 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 History of spinal surgery L3-5 Social History Smoking Status: Never smoker Second Hand Exposure: No; Do You Dip or Chew Tobacco: No; Tobacco Cessation Education Requested by Patient: No Hx Alcohol Use: Yes Alcohol type: hard liquor Hx Substance Use: No Preferred Language: Peruvian Communication Ability: Effective Senior It Security Analyst Required: No Beliefs That Will Affect Care: None marital status: Single Current Living Situation: Alone Other Information That Helps Us Care for You: No Feels Safe at Home: Yes Safety Concerns: Feels Safe At This Time Assistive Devices: CPAP and Glasses Review of Systems Review of Systems: REVIEW OF SYSTEMS: Constitutional: No fever, sweats or chills Eyes: No diplopia, no worsening or blurred vision ENT: normal hearing, no trouble swallowing Respiratory: No cough, sputum, dyspnea at rest or on exertion Cardiovascular: No chest pain, tightness or palpitations Abdomen: No pain, nausea, vomiting, diarrhea or constipation Musculoskeletal: (+) chronic knee and hip joint pain, calf and foot pain with rest and activity, NO swelling Neurologic: No weakness, numbness/tingling, or balance problems Psychiatric: No anxiety or depression Skin: No rash or itch Physical Exam Physical Exam: PHYSICAL EXAM: General: awake, alert, no apparent distress Head: Normocephalic, atraumatic ENT: PERRL, EOMI, no pharyngeal exudate, mucous membranes moist Neuro: AAO x 3, speech clear and appropriate, strength intact bilaterally 5/5, sensation intact and equal, no pronator drift Chest: equal rise and fall of the chest, no accessory muscle use, no heaves or thrills, Clear to auscultation, on room air, Cardiac: Regular rate and rhythm, telemetry reviewed- NSR, S1S2, skin warm dry, cap refill <3 seconds, peripheral pulses +2 no JVD, no murmur, no edema, left leg and foot are warm and pulses 1+ and dopplerable GI: NABS x 4 quadrants, soft, nontender to palpation, no rebound, guarding or tenderness : Spontaneously voiding, no pain, no CVA tenderness, Extremities: Normal inspection, no peripheral edema or erythema, calfs nontender to palpation Psych: Normal mood and affect Skin: no rash or erythema Results & Data Results & Data Vital Signs (Past 12 Hours) Vital Signs Temp Pulse Pulse Resp BP BP BP 04/20/24 20:09 97 H 13 123/65 04/20/24 19:45 93 H 14 141/70 H 04/20/24 19:35 94 H 15 139/69 04/20/24 19:25 98 H 12 141/70 H 04/20/24 19:15 106 H 16 143/71 H 04/20/24 19:08 36.3 C L 113 H 18 152/74 H 04/20/24 10:27 37 C 83 20 163/107 H BP Pulse Ox O2 Del Method 04/20/24 20:09 95 04/20/24 19:45 139/88 95 Room Air 04/20/24 19:35 138/92 95 Room Air 04/20/24 19:25 147/91 H 93 Room Air 04/20/24 19:15 153/91 H 91 Room Air 04/20/24 19:08 137/88 95 Room Air 04/20/24 10:27 156/88 H 97 Room Air Laboratory Results Abnormal lab results 04/20/24 04/20/24 04/20/24 Range/Units 10:07 11:00 19:11 RBC (4.70-6.10) M/uL Hgb (14.0-18.0) g/dl Hct (42.0-52.0) % MCHC (32.0-36.0) g/dL RDW Std Deviation (36.4-46.3) fL RDW Coeff of Alexis (11.5-14.5) % Lymph # (Auto) (1.20-3.40) K/uL POC Glucose 126 H 190 H (70-99) mg/dl Crossmatch See Detail 04/20/24 04/20/24 Range/Units 19:20 20:26 RBC 3.79 L (4.70-6.10) M/uL Hgb 10.3 L (14.0-18.0) g/dl Hct 33.0 L (42.0-52.0) % MCHC 31.2 L (32.0-36.0) g/dL RDW Std Deviation 57.6 H (36.4-46.3) fL RDW Coeff of Alexis 18.1 H (11.5-14.5) % Lymph # (Auto) 0.64 L (1.20-3.40) K/uL POC Glucose 180 H (70-99) mg/dl Crossmatch Medications Administered Home Medications cholecalciferol (vitamin D3) 50 mcg (2,000 unit) tablet (Vitamin D3) 50 mcg PO QAM 05/02/21 [History Confirmed 04/20/24] fexofenadine 180 mg tablet 180 mg PO QAM 05/02/21 [History Confirmed 04/20/24] krgivoki-wlt-fgozg acid 0.4 mg-lycopene 300 mcg-lutein 250 mcg tablet (Centrum Silver) 1 tab PO QAM 05/02/21 [History Confirmed 04/20/24] omeprazole 20 mg capsule,delayed release 20 mg PO QAM 05/02/21 [History Confirmed 04/20/24] sertraline 50 mg tablet (Zoloft) 50 mg PO QAM 05/02/21 [History Confirmed 04/20/24] diazepam 2 mg tablet (Valium) 2 mg PO DIRECTED PRN Anxiety 02/13/24 [History Confirmed 04/20/24] clobetasol 0.05 % topical ointment 1 applic topical DAILY 04/14/24 [History Confirmed 04/20/24] empagliflozin 10 mg tablet (Jardiance) 10 mg PO QAM 04/14/24 [History Confirmed 04/20/24] evolocumab 140 mg/mL subcutaneous syringe (Repatha Syringe) See Rx Instructions .Route .COMPLEX 04/14/24 [History Confirmed 04/20/24] gabapentin 300 mg capsule 300 mg PO TID 04/14/24 [History Confirmed 04/20/24] irbesartan 300 mg tablet 300 mg PO QAM 04/14/24 [History Confirmed 04/20/24] Active Medications Atropine Sulfate (Atropine Sulfate 0.1 Mg/Ml 10ml Syr) 0.5 mg IV Q1M PRN PRN Reason: PACU Use-HR<40 &/or Bradycardi Stop: 04/20/24 20:53 Clobetasol Propionate (Clobetasol Propionate 0.05% Oint 15 Gm Tube) 1 appln EXT DAILY DAX Stop: 05/21/24 08:59 Diazepam (Diazepam 2 Mg Tablet) 2 mg PO PRE-TREAT PRN PRN Reason: Anxiety Stop: 05/20/24 20:09 Empagliflozin (Empagliflozin 10 Mg Tab) 10 mg PO QAM DAX Stop: 05/21/24 08:59 Ephedrine Sulfate (Ephedrine Sulfate 50 Mg/Ml Amp) 5 mg IV Q5M PRN PRN Reason: PACU Use Only-SBP<90 mmHg Stop: 04/20/24 20:53 Fentanyl Citrate (Fentanyl Citrate Pf 100 Mcg/2 Ml Vial) 25 mcg IV Q5M PRN PRN Reason: PACU Use Only-Pain Stop: 04/20/24 20:53 Fexofenadine HCl (Fexofenadine Hcl 180 Mg Tab) 180 mg PO QAM [facility] Stop: 05/21/24 08:59 Flumazenil (Flumazenil 0.1 Mg/1 Ml 10 Ml Vial) 0.2 mg IV Q2M PRN PRN Reason: PACU Use Only-Benzo Reversal Stop: 04/20/24 20:53 Gabapentin (Gabapentin 300 Mg Cap) 300 mg PO TID DAX Stop: 05/20/24 20:59 Hydromorphone HCl (Hydromorphone Inj 1 Mg/Ml Syringe) 0.25 mg IV Q5M PRN PRN Reason: PACU Use Only-Pain Stop: 04/20/24 20:53 Promethazine HCl 6.25 mg/ (Sodium Chloride) 50.25 mls @ 204 mls/hr IV ONCE PRN PRN Reason: PACU Use Only-Nausea/Vomiting Stop: 04/20/24 20:53 Sodium Chloride (Nss) 1,000 mls @ 125 mls/hr IV .Q8H DAX Stop: 04/21/24 20:09 Clindamycin Phosphate (Cleocin/D5w) 900 mg in 50 mls @ 100 mls/hr IV Q8H DAX Stop: 04/21/24 22:59 Labetalol HCl (Labetalol Hcl Iv 5 Mg/Ml 20ml) 5 mg IV Q5M PRN PRN Reason: PACU Use-SBP>160 or DBP>100 Stop: 04/20/24 20:53 Losartan Potassium (Losartan Potassium 50 Mg Tab) 50 mg PO QAM [facility] Stop: 05/21/24 08:59 Miscellaneous (Icu Protocol For Hyperglycemia) 1 each N/A ACHS [facility] Stop: 04/22/24 20:59 Morphine Sulfate (Morphine Sulfate 4 Mg/Ml 1 Ml Carp\Vial) 1 - 4 mg IV Q2H PRN PRN Reason: Severe Pain (Scale 7, 8, 9,10) Stop: 05/04/24 20:09 Multivitamins/Minerals (Cerovite Adv Formula Tab) 1 tab PO QAM [facility] Stop: 05/21/24 08:59 Naloxone HCl (Naloxone Hcl 0.4 Mg/1 Ml Vial/Carp) 0.2 mg IV Q2M PRN PRN Reason: PACU Use Only-Opiate Reversal Stop: 04/20/24 20:53 Ondansetron HCl (Ondansetron Inj 2 Mg/Ml 2 Ml Vial) 4 mg IV ONCE PRN PRN Reason: PACU Use Only-Nausea/Vomiting Stop: 04/20/24 20:53 Oxycodone/Acetaminophen (Oxycodone/Acetaminophen 5mg/325mg Tab) 1 - 2 tab PO Q4H PRN PRN Reason: Pain (Scale 3,4,5,6) Stop: 05/04/24 20:09 Pantoprazole Sodium (Pantoprazole 40 Mg Tab) 40 mg PO QAM [facility] Stop: 05/21/24 08:59 Sertraline HCl (Sertraline Hcl 50 Mg Tablet) 50 mg PO QAM DAX Stop: 05/21/24 08:59 Vitamin D (Cholecalciferol 25 Mcg (1000 Units) Tab) 50 mcg PO QAM DAX Stop: 05/21/24 08:59 Coding Level of Care Code 55440 IN/OBS CONSULT LVL 2,35M Diagnoses PAD (peripheral artery disease) I73.9
[2024-04-20] MEDS: GABAPENTIN 300 MG CAP PO SCH (21:35)
[2024-04-20] MEDS: oxyCODONE/ACETAMINOPHEN 5mg/325mg TAB PO PRN (21:41)
[2024-04-20] MEDS: SODIUM CHLORIDE 0.9% 1,000 ML IV SCH (23:19)
[2024-04-20] MEDS: ICU Protocol for HYPERglycemia SCH (23:19)
[2024-04-21 04:39] LABS: Basophils # (auto) 0.01 K/uL (0.00-0.20); Basophils % (auto) 0.2 %; Hemoglobin 9.3 g/dl (14.0-18.0); Immature Granulocytes # (auto) 0.02 K/uL (0.01-0.20); Immature Granulocytes % (auto) 0.4 %; Lymphocytes # (auto) 0.98 K/uL (1.20-3.40); Lymphocytes % (auto) 17.5 %; Mean Corpuscular Hemoglobin 27.7 pg (25.0-34.0); Mean Corpuscular Hgb Conc 32.1 g/dL (32.0-36.0); Mean Corpuscular Volume 86.3 fL (80.0-100.0); Mean Platelet Volume 10.1 fL (9.4-12.4); Monocytes # (auto) 0.35 K/uL (0.11-0.59); Monocytes % (auto) 6.2 %; Neutrophils # (auto) 4.25 K/uL (1.40-6.50); Neutrophils % (auto) 75.7 %; Platelet Count 149 K/uL (130-400); RDW Coefficient of Variation 18.2 % (11.5-14.5); RDW Standard Deviation 57.7 fL (36.4-46.3); Red Blood Count 3.36 M/uL (4.70-6.10); White Blood Count 5.61 K/ul (4.8-10.8)
[2024-04-21 04:55] LABS: BUN Creatinine Ratio 20.6 (10-20); Creatinine Clr Calc Pharmacy 143.5 ml/min
[2024-04-21] MEDS: ICU ELECTROLYTE REPLACEMENT PROTOCOL SCH (05:42)
[2024-04-21] MEDS: CLOBETASOL PROPIONATE 0.05% OINT 15 GM TUBE EXT SCH (07:57)
[2024-04-21] MEDS: CHOLECALCIFEROL 25 MCG (1000 UNITS) TAB PO SCH (08:01)
[2024-04-21] MEDS: CEROVITE ADV FORMULA TAB PO SCH (08:02)
[2024-04-21] MEDS: FEXOFENADINE HCL 180 MG TAB PO SCH (08:02)
[2024-04-21] MEDS: LOSARTAN POTASSIUM 50 MG TAB PO SCH (08:02)
[2024-04-21] MEDS: EMPAGLIFLOZIN 10 MG TAB PO SCH (08:02)
[2024-04-21] MEDS: SERTRALINE HCL 50 MG TABLET PO SCH (08:03)
[2024-04-21] MEDS: PANTOprazole 40 MG TAB PO SCH (08:03)
[2024-04-21] MEDS: MoRPHine SULFATE 4 MG/ML 1 ML CARP\\VIAL IV PRN (08:11)
[2024-04-21] MEDS ORDERED: Nursing to Pharmacy Communication SCH (09:45)
--- NOTE | 2024-04-21 14:31 | Surgery Progress Note ---
Date of Service April 21, 2024 Assessment & Plan (1) Claudication of left lower extremity: Plan: Patient POD #1 after LLE MINE SHIFTER endartectomy with bovine patch, and fem-AK pop prosthetic BPG. (2) S/P femoral-popliteal bypass surgery: Plan: Pt doing well post op. Stable VSS, will transfer to med surg. Continue to monitor, PT/OT. Admission and Anticipated Discharge Date Admission Date: April 20, 2024 Subjective 63 yo m POD #1 after LLE MINE SHIFTER endarterectomy with bovine patch and fem-AK pop prosthetic BPG, seen in f/u today. Pt admits pain in incisions. Denies any other complaints presently. Review of Systems Review of Systems: All systems reviewed & are unremarkable except as noted in HPI & below Physical Exam Constitutional: WD/WN, vitals as above Respiratory: normal respiratory effort, lungs clear to auscultation Cardiovascular: RRR, no murmur, no edema Vessels: posterior tibial pulses present, dorsalis pedis pulses present and radial pulses present; + abnormal peripheral pulses Extremities: normal capillary refill Gastrointestinal (Abdomen): normal bowel sounds, soft, nontender, no hepatosplenomegaly Skin: LLE incisions C/D/I Neurologic: CN's II-XI intact bilaterally and moves all extremities Psychiatric: A+Ox3, euthymic affect Results & Data Vital Signs (Past 12 Hours) Vital Signs Temp Pulse Pulse Resp BP BP Pulse Ox 04/21/24 11:00 36.8 C 96 H 24 120/74 119/60 94 04/21/24 09:06 83 16 97 04/21/24 08:12 86 20 98 04/21/24 08:00 36.8 C 04/21/24 07:06 80 23 99 04/21/24 06:06 92 H 20 96 04/21/24 05:00 79 13 98 04/21/24 04:00 86 16 98 04/21/24 04:00 36.7 C 04/21/24 03:09 87 11 L 98 O2 Del Method 04/21/24 11:00 Room Air 04/21/24 09:06 04/21/24 08:12 04/21/24 08:00 04/21/24 07:06 04/21/24 06:06 04/21/24 05:00 04/21/24 04:00 04/21/24 04:00 04/21/24 03:09
--- NOTE | 2024-04-22 13:51 | Surgery Progress Note ---
Date of Service April 22, 2024 Assessment & Plan (1) S/P femoral-popliteal bypass surgery: Plan: POD #2. Doing well. Can possibly discharge tomorrow Admission and Anticipated Discharge Date Admission Date: April 20, 2024 Subjective Patient complaining of incisional pain controlled with po meds. He is walking to the bathroom. Physical Exam Constitutional: WD/WN, vitals as above Respiratory: normal respiratory effort; no respiratory distress Cardiovascular: Rate/Rhythm: regular rate and regular rhythm pedal pulse palpable Skin: + incision (dry and clean) Neurologic: CN's II-XI intact bilaterally and moves all extremities Psychiatric: A+Ox3, euthymic affect Results & Data Vital Signs (Past 12 Hours) Vital Signs Temp Pulse Resp BP Pulse Ox O2 Del Method 04/22/24 07:00 37.1 C 83 16 123/81 95 Room Air
[2024-04-22] MEDS: DOCUSATE SODIUM 100 MG CAP PO ONE (14:33)
[2024-04-22] MEDS: DOCUSATE SODIUM 100 MG CAP PO SCH (20:40)
[2024-04-22 21:14] VITALS: BP 101/63; PULSE 92; RESP 18; TEMP 98.8; O2SAT 95
[2024-04-22] MEDS ORDERED: Nursing to Pharmacy Communication SCH (23:45)
--- NOTE | 2024-04-23 09:41 | Surgery Progress Note ---
Date of Service April 23, 2024 Assessment & Plan (1) S/P femoral-popliteal bypass surgery: Plan: POD #3, Doing well. D/C home with home nursing today. Admission and Anticipated Discharge Date Admission Date: April 20, 2024 Subjective POD #3 after LLE fem-pop BPG. Patient complaining of incisional pain controlled with po meds. He is walking to the bathroom with walker. Taking PO well. Review of Systems Review of Systems: All systems reviewed & are unremarkable except as noted in HPI & below Physical Exam Constitutional: WD/WN, vitals as above Respiratory: normal respiratory effort, lungs clear to auscultation Cardiovascular: RRR, no murmur, no edema Vessels: posterior tibial pulses present, dorsalis pedis pulses present and radial pulses present; + abnormal peripheral pulses Extremities: normal capillary refill Gastrointestinal (Abdomen): normal bowel sounds, soft, nontender, no hepatosplenomegaly Neurologic: CN's II-XI intact bilaterally and moves all extremities Psychiatric: A+Ox3, euthymic affect
--- NOTE | 2024-04-23 09:42 | Discharge Summary ---
Date of Service April 23, 2024 Admission HPI Per Admitting Provider Mr Dinero is a 63 year old male with history of aortoiliac disease as well as peripheral artery disease. He has a known left iliac artery stenosis as well as infrainguinal disease, mostly femoral disease. We did attempt endovascular intervention of his SFA disease but were unable to cross the lesion. He presents for follow up to discuss a femoral endarterectomy with possible retrograde iliac stenting of the left lower extremity. As far as symptoms, he does state he has noticed increasing intermittent pain on the sole of the foot that improves with elevation of the leg instead of with dangling. He does have history of sciatic nerve pain. He has not noticed discoloration of the feet or toes. He thinks his feet are sometimes cool but this improves with socks. He does not have any open wounds. No weakness of the lower extremities at baseline. He is on a baby aspirin. He is not on a statin as he gets severe myalgias with this. Admission Exam Per Admitting Provider Constitutional: WD/WN, vitals as above Respiratory: normal respiratory effort, lungs clear to auscultation Cardiovascular: RRR, no murmur, no edema . Bilateral femoral pulses are palpable, 2+. Bilateral lower extremities are warm and well perfused with no areas of discoloration. There are no open wounds visible. The right foot has AT and PT signals present. The left foot has a faint AT signal present. Unable to find a PT signal but there is a multiphasic left popliteal artery signal present. There is minimal numbness of the left toes at baseline, no numbness of the rest of the foot. No numbness of the right foot. No weakness in bilateral lower extremities. Gastrointestinal (Abdomen): normal bowel sounds, soft, nontender, no hepatosplenomegaly Neurologic: CN's II-XI intact bilaterally and moves all extremities Psychiatric: A+Ox3, euthymic affect Principal Diagnosis 1. s/p LLE EXERCISE RIDER endarterectomy with bovine patch and EXERCISE RIDER to above knee popliteal prosthetic BPG 2. Severe PAD Discharge Exam Constitutional WD/WN, vitals as above Respiratory normal respiratory effort, lungs clear to auscultation Cardiovascular RRR, no murmur, no edema Vessels: posterior tibial pulses present, dorsalis pedis pulses present and radial pulses present; + abnormal peripheral pulses Extremities: normal capillary refill Gastrointestinal (Abdomen) normal bowel sounds, soft, nontender, no hepatosplenomegaly Neurologic CN's II-XI intact bilaterally and moves all extremities Psychiatric A+Ox3, euthymic affect Discharge Data Allergies Allergy/AdvReac Type Severity Reaction Status Date / Time gluten Allergy Unknown Celiac Verified 04/20/24 10:24 disease cefuroxime AdvReac Intermediate Diarrhea Verified 04/20/24 10:24 [id number] Reductase AdvReac Intermediate Muscle Pain Verified 04/20/24 10:24 Inhibitor Consultations 04/20/24 20:10 Consult Environmental Engineer Scientist Routine Procedures Performed Operation Date: 04/20/24 11:50 Actual Procedures p Left Common Femoral Endarterectomy with bovine patch, and Left Proximal Superficial Femoral Artery to popliteal Bypass(Left) (Left) - Wyatt Sánchez MD Ordered Studies 04/20/24 07:14 EV angio LE LT Routine Hospital Course (1) S/P femoral-popliteal bypass surgery: POD #3, Doing well. D/C home with home nursing today. Total Time Total Time Spent Total Time Spent (In Minutes): 0 Discharge Plan Discharge Items Patient Disposition: Home - Home Health Services Reason For Visit: PAD WITH CLAUDICATION Discharge Diagnosis: 1. s/p LLE EXERCISE RIDER endarterectomy with bovine patch, femoral - above knee popliteal artery prosthetic bypass 2. Severe LLE PAD Activity: Per Instructions section Lifting: No more than 10 pounds Lifting Comment: for 6 weeks Bathing Comment: May shower, no soaking baths Sexual Activity: After two weeks Exercise/Sports: Gradually increase as tolerated Weightbearing: Full weightbearing Non-emergency contact: Primary Care Provider and Surgeon Call non-emergency contact if: you have any medication questions, your symptoms worsen, your pain is not controlled, your pain is concerning for you, you have a fever, your wound has increased redness and your wound has increased drainage Follow-up/Referrals: Sue Espinal MD [Primary Care Provider] - (Follow up with your PCP within 2 weeks. ) Wyatt Sánchez MD [Physician] - 05/13/24 12:45 pm (Follow up with Dr Sánchez or Benita Leong PA-C, in 2 weeks for staple removal) Diet: Carb Consistent or DM2 and Heart Healthy Addtl Attending Provider Instructions: ACTIVITY RECOMMENDATIONS: See Above SPECIAL CARE INSTRUCTIONS: Call your doctor if: * Temperature above 101 degrees * Pain not relieved by pain medicine ordered * There is increased drainage or redness from any incision * You have any unanswered questions or concerns. Pending Studies at Discharge: No Stand-Alone Forms: My [facility], Smoking Cessation Medications and DC Order Prescriptions: New oxycodone-acetaminophen [Percocet] 5-325 mg Tablet 1 - 2 tab PO Q6H PRN (Reason: pain) Qty: 30 0RF docusate sodium 100 mg Capsule 100 mg PO BID Qty: 60 0RF Continued fexofenadine 180 mg Tablet 180 mg PO QAM omeprazole 20 mg capsule,delayed release(DR/EC) 20 mg PO QAM sertraline [Zoloft] 50 mg tablet 50 mg PO QAM Centrum Silver 0.4-300-250 mg-mcg-mcg Tablet 1 tab PO QAM cholecalciferol (vitamin D3) [Vitamin D3] 50 mcg (2,000 unit) Tablet 50 mcg PO QAM gabapentin 300 mg capsule 300 mg PO TID clobetasol 0.05 % Ointment 1 applic TOPICAL DAILY irbesartan 300 mg tablet 300 mg PO QAM Jardiance 10 mg tablet 10 mg PO QAM Repatha Syringe 140 mg/mL syringe See Rx Instructions .ROUTE .COMPLEX Rx Instructions: 10 mg subcutaneously [id number] diazepam [Valium] 2 mg Tablet 2 mg PO DIRECTED PRN (Reason: Anxiety) Patient Comments: "one single tab to be taken morning of procedure 04/20/24" Discharge Orders: Discharge Order (Routine); Ordered 04/23/24 Ordered By: Benita Leong Admission Data Admit Date/Time: 04/20/24 07:45 Attending Provider: Wyatt Sánchez Admit Provider: Wyatt Sánchez Primary Care Provider: Sue Espinal [facility] Providers: [facility]; Clifton Bain; Lalo Vann; Goyo Lopez; Rubén Saucedo; Albin Monaco; Kayode Cortez; Richard Alex; Nathalie Cervantes; Carmen Khanna; Benigno Estrada; Earle Sparks; Nelia Landon
--- NOTE | 2024-05-05 09:53 | Operative Report ---
Post Operative Report Pre & Post Diagnosis Operation Date: 04/20/24 11:50 Pre-Op Diagnosis: Left Iliac Artery and Common Femoral Artery Stenosis Post-Op Diagnosis: Left Iliac Artery and Common Femoral Artery Stenosis I identified the patient and participated in the time-out.: Yes Procedure Operation Date: 04/20/24 11:50 Actual Procedures p Left Common Femoral Endarterectomy with bovine patch, and Left Proximal Superficial Femoral Artery to popliteal Bypass(Left) (Left) - Wyatt Sánchez MD Surgeon Wyatt Sánchez MD It Systems Analyst [employer] Estimated Blood Loss 350 Findings Consistent with Post-Op Diagnosis Specimens none Anesthesia Type General Complications none Disposition Accompanied Patient To Recovery: No Disposition: Recovery Room Indications This is 63-year-old male with severe claudication of the left lower extremity with rest pain. He was found to have a nearly occluded left common femoral artery and superficial femoral artery occlusion. Bypass was recommended as well as a femoral artery endarterectomy and patch. I have discussed the risks options and benefits of the procedure with the patient. The patient understands the risks options and benefits and agrees to the procedure. Description of Procedure The patient was taken to room placed spine position. After general anesthesia was accomplished the left lower extremity groins were prepped and draped in a sterile manner. Patient was identified and timeout was performed. Longitude incision was made in the left groin. This carried down to where the common femoral artery was identified and inguinal ligament. It was carried down distally to beyond the area of the origin of the superficial femoral artery. There was a soft portion of the common femoral artery just above the inguinal ligament as well as beyond the origin of the superficial femoral artery. The rest of the artery was heavily calcified. The patient was given heparin at that time. After adequate position was accomplished the common femoral profundofemoral superficial femorals were clamped. Longitudinal arteriotomy was started on the common femoral artery and extended upward to beyond the plaque and distally to beyond the heavily calcified area to a point where he breakoff point could be accomplished. The endarterectomy was then started. The plaque was then removed. We then used 7-0 Prolene's to tack the proximal distal breakoff points. There is excellent flow back bleeding from the profundofemoral artery. A bovine patch was then brought to the operative field it was sewn in place using 5-0 Prolene sutures. Once this was completed clamps were removed. Flow to the distal leg was still fairly poor. We then made an incision in the medial thigh above the knee. The skin down to where the proximal popliteal artery was identified just beyond the adductor hiatus. It was soft and very usable at that level. A subsartorial tunnel was then made and the 6 mm [place] graft was passed through the tunneler. This was a ring propatent graft. The popliteal artery was then clamped proximal distally. Longitudinal arteriotomy was then made. The [place] graft was beveled the appropriate fashion and the end to side anastomosis was accomplished with a 5-0 Prolene suture. Once this was completed clamps were removed. There was backbleeding seen coming up through the graft. The graft was flushed with heparinized saline and clamped just above the anastomosis. We decided to anastomose the proximal into the patch that overlaid the superficial femoral artery proximally. This was then clamped proximal distally. A longitudinal arteriotomy was started on the graft patch. The [place] graft was then beveled and trimmed the appropriate length. End-to-side anastomosis was then accomplished from the [place] graft and the patch on the superficial femoral artery. Prior to completing this closure with backbleeding and forward bleeding was allowed to occur. The final few sutures were then placed and securely tied. Clamps were removed. Excellent flow was seen through the bypass. There is excellent Doppler signals heard in the foot. Adequate stasis was then noted of the both anastomoses. The wounds were inspected and adequate hemostasis was noted. Wounds were irrigated with saline solution and closed in the usual fashion using running 3-0 Vicryl suture for subcutaneous layer 2-0 Vicryl for the femoral sheath and pérez for the skin. Sterile dressings were applied to the wounds. The patient left the operation room in satisfactory condition and tolerated the procedure well. All needle and sponge counts were correct at the end of the procedure. Benita Leong Pac assisted due to lack of resident availability and was necessary for positioning, draping, retraction, wound closure deep layers, subcutaneous tissue, and skin closure and was necessary for assisting with the case. I attest to the content of the Intraoperative Record and any orders documented therein. Any exceptions are noted below.
== END 2024-04-23 13:21 | disposition home health service (06) | DRG 254 ==
LOC: ASU 09:15 → 1E 09:16 → 3W 04-21 18:19